=== PATIENT | male | born 1935 | race Caucasian/White ===

== ENCOUNTER → 2016-08-11 | Outpatient (CLI) | payer OTHER ==
[~2016-08-11] MED LIST: ASPCH81X PO; METO50TA16 PO; NIFE60TA57 PO; POTA10CA28 PO; PRED1SUS3 OPR; ROSU40TA PO; TRIATAB3 PO
[2016-08-11 13:45] LABS: ESTIMATED AVERAGE GLUCOSE 143 mg/dl; HA1C FLAG Normal (Normal)
[2016-08-11 13:49] LABS: BLOOD UREA NITROGEN 28 mg/dl (7-18); BUN/CREATININE RATIO 25.1 (10-20); CALCIUM 8.9 mg/dl (8.5-10.1); CARBON DIOXIDE 28 mmol/L (21-32); CHLORIDE 105 mmol/L (98-107); CHOLESTEROL 200 mg/dl (0-200); GLUCOSE 123 mg/dl (70-99); POTASSIUM 3.6 mmol/L (3.5-5.1); SODIUM 141 mmol/L (136-145); TRIGLYCERIDES 128 mg/dl (0-150); VERY LOW DENSITY LIPOPROT CALC 26 mg/dl
[2016-08-11 13:52] LABS: CHOLESTEROL/HDL RATIO 4.3; HDL CHOLESTEROL 46 mg/dl
== END | disposition home or self-care (01) ==
LOC: C.LABSPEC 12:43
PROVIDERS: ATTEND Internal Medicine
DX: I10 Essential (primary) hypertension (principal); E78.5 Hyperlipidemia, unspecified; R73.9 Hyperglycemia, unspecified

== ENCOUNTER → 2016-12-07 | Outpatient (CLI) | payer OTHER ==
[2016-12-07 13:57] LABS: ALT/SGPT 27 U/L (12-78); AST/SGOT 18 U/L (15-37); BLOOD UREA NITROGEN 17 mg/dl (7-18); BUN/CREATININE RATIO 14.4 (10-20); CALCIUM 9.2 mg/dl (8.5-10.1); CARBON DIOXIDE 29 mmol/L (21-32); CHLORIDE 105 mmol/L (98-107); CHOLESTEROL 220 mg/dl (0-200); GLUCOSE 128 mg/dl (70-99); POTASSIUM 3.3 mmol/L (3.5-5.1); SODIUM 141 mmol/L (136-145); TRIGLYCERIDES 203 mg/dl (0-150); VERY LOW DENSITY LIPOPROT CALC 41 mg/dl
[2016-12-07 13:59] LABS: ALB/GLOB RATIO 1.1 (0.9-2); ALKALINE PHOSPHATASE 63 U/L (45-117); CHOLESTEROL/HDL RATIO 4.8; HDL CHOLESTEROL 46 mg/dl
[2016-12-07 14:01] LABS: ESTIMATED AVERAGE GLUCOSE 146 mg/dl; HA1C FLAG Normal (Normal)
== END | disposition home or self-care (01) ==
LOC: C.LABSPEC 12:26
PROVIDERS: ATTEND Internal Medicine
DX: Z00.00 Encounter for general adult medical examination without abnormal findings (principal); I10 Essential (primary) hypertension; R73.9 Hyperglycemia, unspecified; E78.5 Hyperlipidemia, unspecified

== ENCOUNTER → 2016-12-22 | Outpatient (CLI) | payer OTHER | END | disposition home or self-care (01) | LOC: C.LABSPEC 12:18 | PROVIDERS: ATTEND Internal Medicine | DX: Z12.11 Encounter for screening for malignant neoplasm of colon (principal) ==

== ENCOUNTER → 2017-01-22 | Outpatient (CLI) | payer OTHER, BC ==
--- NOTE | 2017-01-22 18:13 | DIAGNOSTIC IMAGING REPORT ---
THORACIC SPINE 3 VIEWS ROUTINE CLINICAL HISTORY: ACUTE BACK PAIN COMPARISON STUDY: No previous studies for comparison. FINDINGS: There is a minimal spinal curvature. Bones are osteopenic. The paraspinal line is not displaced. No acute fractures are visualized. There are degenerative changes present, most pronounced within the lower cervical spine. Mild anterolisthesis of C7 on T1, and T1 on T2 is likely degenerative. No destructive lesions are visualized on conventional radiographic evaluation. IMPRESSION: 1. No acute fractures 2. No destructive lesions are visualized Electronically signed by: Jay Dangelo M.D. 01/22/2017 6:12 PM Dictated Date/Time: 01/22/2017 6:10 PM
--- NOTE | 2017-01-22 18:14 | DIAGNOSTIC IMAGING REPORT ---
L-SPINE MIN 4 VIEWS ROUTINE CLINICAL HISTORY: 81 years-old Male presenting with ACUTE BACK PAIN, no injury. TECHNIQUE: Frontal, bilateral oblique, lateral, and coned in lateral views of the lumbar spine were obtained. COMPARISON: Correlation made to CT of the abdomen and pelvis from 08/29/2010. FINDINGS: Suggestion of osteopenia. Normal lumbar lordosis. Mild anterior vertebral body height loss of L1 is unchanged since prior CT in 2010. Vertebral body heights and alignment otherwise maintained. Intervertebral disc height loss at L5-S1 where there is focal degenerative change. No convincing evidence of osseous neural foraminal narrowing. Surgical clips project over the periaortic region. Splenic arterial calcification noted. Nonobstructive bowel gas pattern. IMPRESSION: 1. Focal degenerative changes at L5-S1. 2. No radiographic evidence of acute osseous injury allowing for presumed osteopenia. Electronically signed by: Darryn Ely M.D. 01/22/2017 6:12 PM Dictated Date/Time: 01/22/2017 6:09 PM
== END | disposition home or self-care (01) ==
LOC: C.RAD 17:37
PROVIDERS: ATTEND Internal Medicine
DX: M54.9 Dorsalgia, unspecified (principal)

== ENCOUNTER → 2017-04-14 | Outpatient (CLI) | payer OTHER, BC ==
[2017-04-14 14:07] LABS: BLOOD UREA NITROGEN 24 mg/dl (7-18); BUN/CREATININE RATIO 21.1 (10-20); CALCIUM 9.1 mg/dl (8.5-10.1); CARBON DIOXIDE 27 mmol/L (21-32); CHLORIDE 107 mmol/L (98-107); CHOLESTEROL 188 mg/dl (0-200); CREATININE 1.14 mg/dl (0.60-1.40); GLUCOSE 124 mg/dl (70-99); POTASSIUM 3.7 mmol/L (3.5-5.1); SODIUM 141 mmol/L (136-145); TRIGLYCERIDES 126 mg/dl (0-150); VERY LOW DENSITY LIPOPROT CALC 25 mg/dl
[2017-04-14 14:10] LABS: CHOLESTEROL/HDL RATIO 3.6; HDL CHOLESTEROL 52 mg/dl
[2017-04-15 06:45] LABS: ESTIMATED AVERAGE GLUCOSE 134 mg/dl; HA1C FLAG Normal (Normal)
== END | disposition home or self-care (01) ==
LOC: C.LABSPEC 12:23
PROVIDERS: ATTEND Internal Medicine
DX: I10 Essential (primary) hypertension (principal); E78.5 Hyperlipidemia, unspecified; R73.9 Hyperglycemia, unspecified

== ENCOUNTER → 2017-08-12 | Outpatient (CLI) | payer OTHER, BC ==
[2017-08-12 14:44] LABS: BLOOD UREA NITROGEN 22 mg/dl (7-18); CARBON DIOXIDE 29 mmol/L (21-32); CREATININE 1.12 mg/dl (0.60-1.40); GLUCOSE 130 mg/dl (70-99); POTASSIUM 3.5 mmol/L (3.5-5.1); SODIUM 139 mmol/L (136-145)
[2017-08-12 14:47] LABS: CHOLESTEROL 233 mg/dl (0-200); LDL CHOLESTEROL (DIRECT) 152 mg/dl
== END | disposition home or self-care (01) ==
LOC: C.LABSPEC 12:50
PROVIDERS: ATTEND Internal Medicine
DX: I10 Essential (primary) hypertension (principal); E11.9 Type 2 diabetes mellitus without complications; E78.5 Hyperlipidemia, unspecified

== ENCOUNTER → 2018-01-03 | Outpatient (CLI) | payer OTHER, BC ==
[2018-01-03 14:01] LABS: HEMOGLOBIN A1C 6.9 % (4.5-5.6)
[2018-01-03 14:22] LABS: BLOOD UREA NITROGEN 19 mg/dl (7-18); CARBON DIOXIDE 26 mmol/L (21-32); CHOLESTEROL 187 mg/dl (0-200); CREATININE 1.08 mg/dl (0.60-1.40); GLUCOSE 119 mg/dl (70-99); LDL CHOLESTEROL (DIRECT) 113 mg/dl; POTASSIUM 3.7 mmol/L (3.5-5.1); SODIUM 140 mmol/L (136-145)
== END | disposition home or self-care (01) ==
LOC: C.LABSPEC 12:41
PROVIDERS: ATTEND Internal Medicine
DX: Z00.00 Encounter for general adult medical examination without abnormal findings (principal); I10 Essential (primary) hypertension; E11.9 Type 2 diabetes mellitus without complications; E78.5 Hyperlipidemia, unspecified

== ENCOUNTER 2020-03-24 10:22 | Observation (INO) ==
[2020-03-24] MEDS ORDERED: ONDANSETRON INJ 2 MG/ML 2 ML VIAL ONE (10:45)
[2020-03-24] MEDS ORDERED: FAMOTIDINE 20MG IV PUSH 20 MG/5 ML SYR IV STA (10:52)
[2020-03-24] MEDS ORDERED: diphenhydrAMINE 50 MG/ML VIAL IV STA (10:52)
[2020-03-24] MEDS ORDERED: SODIUM CHLORIDE 0.9% 1000ML 1,000 ML IV ONE (10:52)
[2020-03-24] MEDS ORDERED: PROCHLORPERAZINE 1 ML IV ONE (10:52)
--- NOTE | 2020-03-24 10:55 | Emergency Department Note ---
Impression & Plan Nausea & vomiting, Dizziness, Bradycardia ED Provider Note NAME: SABINE MOYA AGE: 84 SEX: M ARRIVES VIA: Walk-In INFORMANT: Patient, ED PROVIDER(S): Kamran Merrill MD CHIEF COMPLAINT: Dizziness, nausea, vomiting PLAN: Disposition: Admit MEDICAL DECISION MAKING: The patient is a pleasant 84-year-old gentleman with a pmhx of HTN, HLD, AAA s/p repair, bilateral popliteal a repair on Xarelto who presents emergency department accompanied by his daughter with dizziness, nausea and vomiting with attempts to eat that has persisted since Wednesday. He denies any abdominal pain, chest pain, shortness of breath, fevers, chills, cough, congestion, diarrhea. He reports having bowel movement Wednesday before and after his nausea and vomiting started. He denies any known COVID-19 exposures. The patient feels his dizziness and vomiting evolved around the same time. On arrival patient is uncomfortable no acute distress, afebrile with stable vital signs. EKG demonstrates sinus bradycardia without overt acute ischemia. Chest x-ray negative for acute cardiopulmonary process. WBC, H/H and platelets within normal limits. Chemistry without metabolic acidosis. Electrolytes and LFTs unremarkable. Troponin 0.017, within normal limits. Lipase is not elevated. UA without evidence of infection. CT done pelvis was negative for acute process. Incidental note is made of cystic lesion of the pancreas that has progressed since 2010 likely benign. On reevaluation the patient did feel improved after IV fluid hydration and antiemetics. However upon ambulatory trial the patient was significantly unsteady unable to keep his balance. Therefore given persistence of his symptoms with unclear etiology we did agree to proceed with evaluation for possible central etiology. CT of the head was negative for ischemia or ICH. There is no severe narrowing or occlusion of large vessels. Moderate carotid disease was noted. They were ultimately agreeable for admission for further evaluation given the persistence of his symptoms. Case was discussed with Dr. Blanco, [facility] [place], who will evaluate the patient for admission. Triage Nursing notes reviewed and agree them. Prior medical records reviewed Vital Signs: reviewed and remarkable for sinus bradycardia Differential diagnosis: Gastroenteritis, food borne illness, infections, appendicitis, diverticulitis, inflammatory bowel disease, obstruction, GI bleed, biliary pathology, volvulus, as well as other pathologies. ER treatment provided: See below. Diagnostics interpreted by me: ECG: Sinus bradycardia, 47 bpm, no ectopy, no overt ST elevation or depression, QTC 465, QRS 98. Cardiac Monitoring: An order for continuous cardiac monitoring was placed and demonstrated sinus bradycardia, 47 bpm, no ectopy. Laboratory studies: See below Imaging studies: XR chest 1V portable HISTORY: 84 years-old Male Chest Pain acute atypical chest pain COMPARISON: CTA chest and chest radiograph 06/15/2018 TECHNIQUE: Portable AP view of the chest FINDINGS: Cardiac silhouette is mildly enlarged. Calcified plaque of the thoracic aortic arch. No pneumothorax, pleural effusion, airspace consolidation or overt pulmonary edema. 1.7 cm calcified pleural plaque adjacent to left upper lobe is redemonstrated. Degenerative changes of the shoulders and spine. IMPRESSION: No acute process. -- ABDOMEN AND PELVIS CT WITH IV CONTRAST CT DOSE: 359.97 mGy.cm HISTORY: Acute generalized abdominal pain with nausea and vomiting n/v, abd pain TECHNIQUE: Multiaxial CT images of the abdomen and pelvis were performed following the IV administration of 95 cc of Optiray 320, A dose lowering technique was utilized adhering to the principles of ALARA. COMPARISON STUDY: CT abdomen and pelvis 08/29/2010 FINDINGS: Mild bibasilar atelectasis/scarring. Coronary artery, aortic and mitral annular calcifications. No pneumatosis or pneumoperitoneum. The spleen is unremarkable. Bilateral adrenal gland thickening is unchanged suggestive of hyperplasia. Cholelithiasis without CT evidence of acute cholecystitis. Mild prominence of the common bile duct without choledocholithiasis identified. Unremarkable liver. There is patency of the hepatic and portal veins. There is an ovoid cystic lesion measuring 1.9 x 1.4 cm within the pancreatic neck with marginal curvilinear calcification. In retrospect, this previously measured 11 x 10 mm in 2010. Unremarkable kidneys with bilateral renal vascular calcifications. No hydronephrosis. Mild prostamegaly with mild gallbladder distention. Extensive mixed plaque the abdominal aorta and branch vessels. Fusiform aneurysm dilation of the infrarenal abdominal aorta, 4.0 x 3.7 cm without evidence of aneurysm rupture. Mild fusiform dilation of the bilateral common iliac arteries, 2.0 cm on the right and 1.5 cm on the left. Postoperative changes with surgical clips of the bilateral inguinal chains. Small fat filled inguinal hernias. No adenopathy. Mild distal esophageal wall thickening with periesophageal varices. No bowel obstruction or bowel wall thickening. Colonic diverticulosis without acute diverticulitis. Moderate fecal retention. Normal appendix. Unremarkable soft tissues. Demineralized appearance of the bones. Degenerative changes of the spine, pelvis and hips. No suspicious bone lesion. IMPRESSION: 1. No bowel obstruction or bowel wall thickening. Normal appendix. 2. Moderate fecal retention. 3. Cystic lesion with minimal peripheral calcification involving the pancreatic neck has mildly increased in size from 2011, now measuring 1.9 cm. Benign etiology is favored. 4. Cholelithiasis without CT evidence of acute cholecystitis. 5. Extensive mixed plaque of the abdominal aorta with fusiform aneurysmal dilation of the infrarenal segment, 4.0 x 3.7 cm. Mild dilation of the bilateral common iliac arteries. 6. Additional findings as above. -- CT head/brain wo con CLINICAL HISTORY: 84 years-old Male with dizziness, vomiting. Acute dizziness with vomiting TECHNIQUE: Multiple axial CT images of the head were obtained without contrast. A dose lowering technique was utilized adhering to the principles of ALARA. COMPARISON: CTA head and neck of same day FINDINGS: No acute intracranial hemorrhage, midline shift, intracranial mass, hydrocephalus, territorial ischemia or abnormal extra-axial collection. Age- related involutional changes. Patchy white matter hypodensities suggest chronic microvascular ischemic disease. Cerebral vascular and senescent basal ganglia calcifications are noted. The calvarium is intact. The paranasal sinuses, mastoid air cells, and middle ear cavities are clear. IMPRESSION: No acute intracranial abnormality. - CT angio neck with con, CT angio head w con CLINICAL HISTORY: 84 years-old Male with dizziness, vomiting. Acute dizziness with vomiting acute strokelike symptoms COMPARISON STUDY: Head CT of same day TECHNIQUE: Following the IV administration of 1 20 mL of Optiray 320, CT angiogram of the head and neck was performed from the aortic arch to the skull apex. Images are reviewed in the axial, sagittal, and coronal planes. 3-D MIPS images are created and assessed. IV contrast was administered without complication. All measurements were calculated based on NASCET criteria. A dose lowering technique was utilized adhering to the principles of ALARA. CT DOSE: 1085.94 mGy.cm FINDINGS: Imaged opacified pulmonary artery is unremarkable. Moderate to severe mixed plaque of the thoracic aortic arch and proximal great vessels. The innominate and imaged subclavian arteries appear patent. Patent innominate and common carotid arteries. There is moderate to severe mixed plaque of the carotid bulbs and proximal internal carotid arteries. This results in 60% stenosis at the origin of the right internal carotid artery and less than 50% stenosis on the left. The bilateral internal carotid arteries are otherwise widely patent. Calci fied plaque of the cavernous and supraclinoid segments without high-grade stenosis. The middle and anterior cerebral arteries are patent. Codominant vertebral arteries. Calcified plaque the origin of the right vertebral artery without high-grade stenosis. The left vertebral artery originates from the aortic arch. Areas of moderate luminal narrowing noted involving the V4 segment right vertebral artery secondary to calcified plaque. The left vertebral artery is widely patent. The basilar and posterior cerebral arteries are patent. Cerebral venous sinuses are patent. There is no abnormal cranial enhancement. Lung apices are clear without pneumothorax. Subcentimeter hypodense right thyroid nodule. No adenopathy. Mild mucoperiosteal thickening of the maxillary sinuses. Multilevel degenerative changes of the cervical spine. Developmental incomplete bony fusion involves the posterior arch of C1. IMPRESSION: 1. 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 2. Moderate luminal narrowing within the V4 segment right vertebral artery secondary to calcified plaque. 3. No aneurysm, dissection, high-grade stenosis or proximal branch occlusion. Consultation(s): Case was discussed with Dr. Blanco, [facility] hospitalist, who will evaluate the patient for admission. HPI: The patient is a pleasant 84-year-old gentleman with a pmhx of HTN, HLD, AAA s/p repair, bilateral popliteal a repair on [facility] who presents emergency department accompanied by his daughter with dizziness, nausea and vomiting with attempts to eat that has persisted since Wednesday. He denies any abdominal pain, chest pain, shortness of breath, fevers, chills, cough, congestion, diarrhea. He reports having bowel movement Wednesday before and after his nausea and vomiting started. He denies any known COVID-19 exposures. The patient feels his dizziness and vomiting evolved around the same time. ROS: See above HPI for pertinent positives & negatives. A total of 10 systems reviewed and were otherwise negative. PAST MEDICAL HISTORY:See Below PAST SURGICAL HISTORY:See Below FAMILY HISTORY:See Below SOCIAL HISTORY:See Below HOME MEDICATIONS:See Below ALLERGIES:See Below VITALS:See Below PHYSICAL EXAMINATION: GENERAL: Awake, alert, uncomfortable-appearing, in no distress HENT: Normocephalic, atraumatic. Oropharynx with dry mucous membranes and otherwise unremarkable. EYES: Normal conjunctiva. Sclera non-icteric. EOMI. No nystamgus. PEARRL. NECK: Supple. No nuchal rigidity. FROM. No JVD. RESPIRATORY: Clear to auscultation. CARDIAC: Regular rate, normal rhythm. Extremities warm and well perfused. Pulses equal. ABDOMEN: Soft, non-distended. No tenderness to palpation. No rebound or guarding. No masses. RECTAL: Deferred. MUSCULOSKELETAL: Chest examination reveals no tenderness. The back is symmetrical on inspection without obvious abnormality. There is no CVA tend erness to palpation. No joint edema. LOWER EXTREMITIES: Calves are equal size bilaterally and non-tender. No edema. No discoloration. NEURO: Normal sensorium. No sensory or motor deficits noted. Intact [id number]. 5/5 strength and SILT x 4 extremities. SKIN: No rash or jaundice noted. 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 Surgical History History of AAA (abdominal aortic aneurysm) repair History of vascular surgery b/l popliteal artery aneurysm repair Hx of colonoscopy Family History Father Myocardial infarction No early [place] Brother Family history of diabetes mellitus Sister Family history of diabetes mellitus Social History Smoking Status: Never smoker Second Hand Exposure: No; Hx Alcohol Use: No Hx Substance Use: No Preferred Language: Belarusian Communication Ability: Effective Beliefs That Will Affect Care: None marital status: Current Living Situation: Spouse Current Living Situation Comment: lives in house with 13 steps Feels Safe at Home: Yes Assistive Devices: Glasses and Walker Allergies Allergies Allergy/AdvReac Type Severity Reaction Status Date / Time No Known Allergies Allergy Verified 03/24/20 13:22 Home Meds Home Medications Medication Instructions Recorded Confirmed aspirin [Aspirin Low Dose] 81 mg PO QAM 06/15/18 03/24/20 metoprolol tartrate 50 mg PO QAM 06/15/18 03/24/20 nifedipine [Procardia XL] 60 mg PO QAM 06/15/18 03/24/20 rosuvastatin 40 mg PO HS 06/15/18 03/24/20 triamterene-hydrochlorothiazid 1 cap PO QAM 06/15/18 03/24/20 Xarelto 20 mg PO HS 03/02/19 03/24/20 metformin 500 mg PO BID 03/02/19 03/24/20 potassium chloride 30 meq PO BID 03/02/19 03/24/20 Results & Data (ED) Vital Signs Vital Signs - 24 hr 03/24/20 10:29 03/24/20 11:19 03/24/20 11:30 Temperature 36.5 C Temperature Source Oral Pulse Rate 61 50 L 47 L Pulse Rate from SpO2 Sensor Respiratory Rate 20 12 Respiratory Effort / Characteristics Non-Labored Spontaneous Respiratory Depth Normal Blood Pressure 168/92 H 159/83 H Blood Pressure Mean 114 98 Blood Pressure Position Sitting Pulse Oximetry 92 96 Oxygen Delivery Method Room Air Room Air Sepsis Recent Fever Within 48 Hours No Sepsis New/Unexplained Change in Mental Status No Sepsis Action Taken by Nursing No Action Required 03/24/20 12:00 03/24/20 12:30 03/24/20 13:00 Temperature Temperature Source Pulse Rate 46 L 50 L 51 L Pulse Rate from SpO2 Sensor Respiratory Rate 15 15 15 Respiratory Effort / Characteristics Respiratory Depth Blood Pressure 185/82 H 185/89 H 172/96 H Blood Pressure Mean 105 106 109 Blood Pressure Position Pulse Oximetry Oxygen Delivery Method Sepsis Recent Fever Within 48 Hours Sepsis New/Unexplained Change in Mental Status Sepsis Action Taken by Nursing 03/24/20 13:30 03/24/20 14:00 03/24/20 14:30 Temperature Temperature Source Pulse Rate 54 L 50 L 53 L Pulse Rate from SpO2 Sensor Respiratory Rate 14 16 16 Respiratory Effort / Characteristics Respiratory Depth Blood Pressure 170/96 H 147/97 H 167/91 H Blood Pressure Mean 120 108 100 Blood Pressure Position Pulse Oximetry Oxygen Delivery Method Sepsis Recent Fever Within 48 Hours Sepsis New/Unexplained Change in Mental Status Sepsis Action Taken by Nursing 03/24/20 15:00 03/24/20 15:39 03/24/20 16:00 Temperature Temperature Source Pulse Rate 46 L 70 56 L Pulse Rate from SpO2 Sensor 56 L Respiratory Rate 14 16 16 Respiratory Effort / Characteristics Respiratory Depth Blood Pressure 180/90 H Blood Pressure Mean 107 Blood Pressure Position Pulse Oximetry 95 Oxygen Delivery Method Sepsis Recent Fever Within 48 Hours Sepsis New/Unexplained Change in Mental Status Sepsis Action Taken by Nursing 03/24/20 16:01 03/24/20 16:30 03/24/20 17:00 Temperature Temperature Source Pulse Rate 50 L 46 L 48 L Pulse Rate from SpO2 Sensor 50 L 46 L 48 L Respiratory Rate 14 15 14 Respiratory Effort / Characteristics Respiratory Depth Blood Pressure 175/95 H 183/88 H 183/89 H Blood Pressure Mean 114 102 101 Blood Pressure Position Pulse Oximetry 95 94 96 Oxygen Delivery Method Sepsis Recent Fever Within 48 Hours Sepsis New/Unexplained Change in Mental Status Sepsis Action Taken by Nursing 03/24/20 17:30 Temperature Temperature Source Pulse Rate 51 L Pulse Rate from SpO2 Sensor 50 L Respiratory Rate 16 Respiratory Effort / Characteristics Respiratory Depth Blood Pressure 200/101 H Blood Pressure Mean 119 Blood Pressure Position Pulse Oximetry 94 Oxygen Delivery Method Sepsis Recent Fever Within 48 Hours Sepsis New/Unexplained Change in Mental Status Sepsis Action Taken by Nursing Laboratory Data Attestation: I reviewed the patient's lab results. Result diagrams: 03/24/20 10:42 03/24/20 10:42 Lab Results 03/24/20 03/24/20 03/24/20 Range/Units 10:42 10:42 10:42 WBC 10.15 (4.8-10.8) K/uL RBC 5.60 (4.7-6.1) M/uL Hgb 17.2 (14.0-18.0) g/dL Hct 50.2 (42-52) % MCV 89.6 (80-100) fL MCH 30.7 (25-34) pg MCHC 34.3 (32-36) g/dL RDW Std Deviation 46.6 H (36.4-46.3) fL RDW Coeff of Michael 14.4 (11.5-14.5) % Plt Count 197 (130-400) K/uL MPV 10.6 H (7.4-10.4) fL Immature Gran % (Auto) 0.2 % Neut % (Auto) 66.1 % Lymph % (Auto) 26.6 % Moore % (Auto) 6.4 % Eos % (Auto) 0.5 % Baso % (Auto) 0.2 % Neut # (Auto) 6.71 H (1.4-6.5) K/uL Lymph # (Auto) 2.70 (1.2-3.4) K/uL Moore # (Auto) 0.65 H (0.11-0.59) K/uL Eos # (Auto) 0.05 (0-0.5) K/uL Baso # (Auto) 0.02 (0-0.2) K/uL Immature Gran # (Auto) 0.02 (0.00-0.02) K/uL PT Cancelled INR Cancelled APTT Cancelled PTT Ratio Cancelled Sodium 139 (136-145) mmol/L Potassium 3.5 (3.5-5.1) mmol/L Chloride 106 (98-107) mmol/L Carbon Dioxide 27 (21-32) mmol/L Anion Gap 6.0 (3-11) BUN 29 H (7-18) mg/dl Creatinine 1.09 (0.6-1.4) mg/dl Est Cr Clr Drug Dosing Not Reportable Est GFR ( Amer) 70.9 Est GFR (Non-Af Amer) 61.1 BUN/Creatinine Ratio 26.5 H (10-20) Glucose 137 H (70-99) mg/dl Calcium 9.5 (8.5-10.1) mg/dl Phosphorus 3.2 (2.5-4.9) mg/dl Magnesium 2.2 (1.8-2.4) mg/dl Total Bilirubin 1.2 H (0.2-1) mg/dl Direct Bilirubin 0.2 (0-0.2) mg/dl AST 16 (15-37) U/L ALT 28 (12-78) U/L Alkaline Phosphatase 71 (45-117) U/L Troponin I 0.017 (0-0.045) ng/ml Total Protein 7.7 (6.4-8.2) gm/dl Albumin 3.8 (3.4-5.0) gm/dl Globulin 3.9 (2.5-4.0) gm/dl Albumin/Globulin Ratio 1.0 (0.9-2) Lipase 105 (73-393) U/L TSH 4.090 (0.300-4.500) uIu/ml Urine Color Urine Appearance (Clear) Urine pH (4.5-7.5) Ur Specific [place] (1.000-1.030) Urine Protein (Negative) Urine Glucose (UA) (Negative) Urine Ketones (Negative) Urine Blood (Negative) Urine Nitrite (Negative) Urine Bilirubin (Negative) Urine Urobilinogen (Negative) Ur Leukocyte Esterase (Negative) Urine WBC (Auto) (0-5) /hpf Urine RBC (Auto) (0-4) /hpf U Hyaline Cast (Auto) (0-5) /lpf U Epithel Cells (Auto) (0-5) /lpf Urine Bacteria (Auto) (Negative) 03/24/20 03/24/20 Range/Units 11:55 15:00 WBC (4.8-10.8) K/uL RBC (4.7-6.1) M/uL Hgb (14.0-18.0) g/dL Hct (42-52) % MCV (80-100) fL MCH (25-34) pg MCHC (32-36) g/dL RDW Std Deviation (36.4-46.3) fL RDW Coeff of Michael (11.5-14.5) % Plt Count (130-400) K/uL MPV (7.4-10.4) fL Immature Gran % (Auto) % Neut % (Auto) % Lymph % (Auto) % Moore % (Auto) % Eos % (Auto) % Baso % (Auto) % Neut # (Auto) (1.4-6.5) K/uL Lymph # (Auto) (1.2-3.4) K/uL Moore # (Auto) (0.11-0.59) K/uL Eos # (Auto) (0-0.5) K/uL Baso # (Auto) (0-0.2) K/uL Immature Gran # (Auto) (0.00-0.02) K/uL PT 11.9 INR 1.1 APTT 25.4 PTT Ratio 0.9 Sodium (136-145) mmol/L Potassium (3.5-5.1) mmol/L Chloride (98-107) mmol/L Carbon Dioxide (21-32) mmol/L Anion Gap (3-11) BUN (7-18) mg/dl Creatinine (0.6-1.4) mg/dl Est Cr Clr Drug Dosing Est GFR ( Amer) Est GFR (Non-Af Amer) BUN/Creatinine Ratio (10-20) Glucose (70-99) mg/dl Calcium (8.5-10.1) mg/dl Phosphorus (2.5-4.9) mg/dl Magnesium (1.8-2.4) mg/dl Total Bilirubin (0.2-1) mg/dl Direct Bilirubin (0-0.2) mg/dl AST (15-37) U/L ALT (12-78) U/L Alkaline Phosphatase (45-117) U/L Troponin I (0-0.045) ng/ml Total Protein (6.4-8.2) gm/dl Albumin (3.4-5.0) gm/dl Globulin (2.5-4.0) gm/dl Albumin/Globulin Ratio (0.9-2) Lipase (73-393) U/L TSH (0.300-4.500) uIu/ml Urine Color Yellow Urine Appearance Clear (Clear) Urine pH 5.5 (4.5-7.5) Ur Specific [place] > 1.045 H (1.000-1.030) Urine Protein Trace H (Negative) Urine Glucose (UA) Negative (Negative) Urine Ketones Negative (Negative) Urine Blood Negative (Negative) Urine Nitrite Negative (Negative) Urine Bilirubin Negative (Negative) Urine Urobilinogen Negative (Negative) Ur Leukocyte Esterase Negative (Negative) Urine WBC (Auto) 1-5 (0-5) /hpf Urine RBC (Auto) 0-4 (0-4) /hpf U Hyaline Cast (Auto) 1-5 (0-5) /lpf U Epithel Cells (Auto) >30 H (0-5) /lpf Urine Bacteria (Auto) Negative (Negative) Administered Medications Insulin Aspart (Insulin Aspart 100 Units/Ml 3 Ml Pen) 0 units SC ACHS ARTHUR Stop: 04/23/20 20:59 Last Admin: 03/24/20 21:56 Dose: Not Given Documented by: [id number] Cosigned by: [id number] Rivaroxaban (Rivaroxaban 20 Mg Tab) 20 mg PO HS ARTHUR Stop: 04/23/20 20:59 Last Admin: 03/24/20 21:26 Dose: 20 mg Documented by: [id number] Rosuvastatin Calcium (Rosuvastatin Calcium 20 Mg Tab) 40 mg PO HS ARTUHR Stop: 04/23/20 20:59 Last Admin: 03/24/20 21:25 Dose: 40 mg Documented by: [id number] Discontinued Medications Diphenhydramine HCl (Diphenhydramine 50 Mg/Ml Vial) 12.5 mg IV NOW STA Stop: 03/24/20 10:53 Last Admin: 03/24/20 11:19 Dose: 12.5 mg Documented by: [id number] Sodium Chloride (Nss 1000ml) 1,000 mls @ 999 mls/hr IV .Q1H1M ONE Stop: 03/24/20 11:52 Last Infusion: 03/24/20 12:23 Dose: 0 mls/hr Documented by: [id number] Admin: 03/24/20 11:19 Dose: 999 mls/hr Documented by: [id number] Famotidine (Pepcid 20mg Iv Push) 20 mg in 5 mls @ 2.5 mls/min IV NOW STA Stop: 03/24/20 10:53 Last Admin: 03/24/20 11:18 Dose: 2.5 mls/min Documented by: [id number] Prochlorperazine (Compazine) 1 mls @ 1 mls/min IV ONE ONE Stop: 03/24/20 10:53 Last Admin: 03/24/20 11:19 Dose: 1 mls/min Documented by: [id number] Sodium Chloride (Nss) 500 mls @ 999 mls/hr IV .Q31M ONE Stop: 03/24/20 15:08 Last Infusion: 03/24/20 17:15 Dose: 0 mls/hr Documented by: [id number] Admin: 03/24/20 16:15 Dose: 999 mls/hr Documented by: [id number] Ioversol (Ioversol 100ml) 94 ml IV ONCE ONE Stop: 03/24/20 11:51 Last Admin: 03/24/20 11:50 Dose: 94 ml Documented by: [id number] Ioversol (Optiray 320 125ml) 120 ml IV ONCE ONE Stop: 03/24/20 15:36 Last Admin: 03/24/20 15:36 Dose: 120 ml Documented by: [id number] Ondansetron HCl (Ondansetron Inj 2 Mg/Ml 2 Ml Vial) Confirm Administered Dose 4 mg .ROUTE .STK-MED ONE Stop: 03/24/20 10:46 Last Admin: 03/24/20 10:49 Dose: 4 mg Documented by: [id number] Discharge Plan Visit Data Chief Complaint: Vomiting Stated Complaint: VOMITING ED Provider: Kamran Merrill Discharge Problem: Nausea & vomiting, Dizziness, Bradycardia Patient Disposition: Admitted As Inpatient Discharge Instructions Interventions: ED Discharge Assessment Last Done: 03/24/20 19:48 Discharge Problem: Nausea & vomiting Qualifiers: Vomiting type: unspecified Vomiting Intractability: unspecified Qualified Code(s): R11.2 - Nausea with vomiting, unspecified
[2020-03-24 11:03] LABS: Basophils # (auto) 0.02 K/uL (0-0.2); Basophils % (auto) 0.2 %; Eosinophils # (auto) 0.05 K/uL (0-0.5); Eosinophils % (auto) 0.5 %; Hematocrit (blood only) 50.2 % (42-52); Hemoglobin 17.2 g/dL (14.0-18.0); Immature Granulocytes # (auto) 0.02 K/uL (0.00-0.02); Immature Granulocytes % (auto) 0.2 %; Lymphocytes % (auto) 26.6 %; Mean Corpuscular Hemoglobin 30.7 pg (25-34); Mean Corpuscular Hgb Conc 34.3 g/dL (32-36); Mean Corpuscular Volume 89.6 fL (80-100); Mean Platelet Volume 10.6 fL (7.4-10.4); Monocytes # (auto) 0.65 K/uL (0.11-0.59); Monocytes % (auto) 6.4 %; Neutrophils # (auto) 6.71 K/uL (1.4-6.5); Neutrophils % (auto) 66.1 %; Platelet Count 197 K/uL (130-400); RDW Coefficient of Variation 14.4 % (11.5-14.5); RDW Standard Deviation 46.6 fL (36.4-46.3); White Blood Count 10.15 K/uL (4.8-10.8)
[2020-03-24 11:11] LABS: Alanine Aminotransferase 28 U/L (12-78); Albumin Level 3.8 gm/dl (3.4-5.0); Aspartate Aminotransferase 16 U/L (15-37); BUN Creatinine Ratio 26.5 (10-20); Bilirubin Direct 0.2 mg/dl (0-0.2); Blood Urea Nitrogen 29 mg/dl (7-18); Calcium 9.5 mg/dl (8.5-10.1); Carbon Dioxide 27 mmol/L (21-32); Est GFR (African American) 70.9; Est GFR (Non-African American) 61.1; Glucose 137 mg/dl (70-99); Lipase 105 U/L (73-393); Magnesium 2.2 mg/dl (1.8-2.4); Potassium 3.5 mmol/L (3.5-5.1)
[2020-03-24 11:12] LABS: Phosphorus 3.2 mg/dl (2.5-4.9)
[2020-03-24 11:13] LABS: Chloride 106 mmol/L (98-107); Sodium 139 mmol/L (136-145)
[2020-03-24 11:20] LABS: Alkaline Phosphatase 71 U/L (45-117); Bilirubin,Total 1.2 mg/dl (0.2-1); Globulin 3.9 gm/dl (2.5-4.0); Total Protein 7.7 gm/dl (6.4-8.2); Troponin I 0.017 ng/ml (0-0.045)
--- NOTE | 2020-03-24 11:21 | XRay Report ---
XR chest 1V portable HISTORY: 84 years-old Male Chest Pain acute atypical chest pain COMPARISON: CTA chest and chest radiograph 06/15/2018 TECHNIQUE: Portable AP view of the chest FINDINGS: Cardiac silhouette is mildly enlarged. Calcified plaque of the thoracic aortic arch. No pneumothorax, pleural effusion, airspace consolidation or overt pulmonary edema. 1.7 cm calcified pleural plaque a djacent to left upper lobe is redemonstrated. Degenerative changes of the shoulders and spine. IMPRESSION: No acute process. ACT 112: Negative or not required by law. The above report was generated using voice recognition software. It may contain grammatical, syntax o r spelling errors. Electronically signed by: Pedro Noland M.D. 03/24/2020 11:19 AM
[2020-03-24] MEDS ORDERED: IOVERSOL 100ml IV ONE (11:50)
[2020-03-24 12:13] LABS: INR 1.1 (0.9-1.1); Partial Thromboplastin Ratio 0.9; Partial Thromboplastin Time 25.4 Seconds (21.0-31.0); Prothrombin Time 11.9 Seconds (9.0-12.0)
--- NOTE | 2020-03-24 12:26 | CT Scan Report ---
ABDOMEN AND PELVIS CT WITH IV CONTRAST CT DOSE: 359.97 mGy.cm HISTORY: Acute generalized abdominal pain with nausea and vomiting n/v, abd pain TECHNIQUE: Multiaxial CT images of the abdomen and pelvis were performed following the IV administrat ion of 95 cc of Optiray 320, A dose lowering technique was utilized adhering to the principles of AL SAAD. COMPARISON STUDY: CT abdomen and pelvis 08/29/2010 FINDINGS: Mild bibasilar atelectasis/scarring. Coronary artery, aortic and mitral annular calcifications. No pn eumatosis or pneumoperitoneum. The spleen is unremarkable. Bilateral adrenal gland thickening is unch anged suggestive of hyperplasia. Cholelithiasis without CT evidence of acute cholecystitis. Mild prom inence of the common bile duct without choledocholithiasis identified. Unremarkable liver. There is p atency of the hepatic and portal veins. There is an ovoid cystic lesion measuring 1.9 x 1.4 cm within the pancreatic neck with marginal curvilinear calcification. In retrospect, this previously measured 11 x 10 mm in 2011. Unremarkable kidneys with bilateral renal vascular calcifications. No hydronephrosis. Mild prostamega ly with mild gallbladder distention. Extensive mixed plaque the abdominal aorta and branch vessels. F usiform aneurysm dilation of the infrarenal abdominal aorta, 4.0 x 3.7 cm without evidence of aneurys m rupture. Mild fusiform dilation of the bilateral common iliac arteries, 2.0 cm on the right and 1.5 cm on the left. Postoperative changes with surgical clips of the bilateral inguinal chains. Small fa t filled inguinal hernias. No adenopathy. Mild distal esophageal wall thickening with periesophageal varices. No bowel obstruction or bowel wal l thickening. Colonic diverticulosis without acute diverticulitis. Moderate fecal retention. Normal a ppendix. Unremarkable soft tissues. Demineralized appearance of the bones. Degenerative changes of th e spine, pelvis and hips. No suspicious bone lesion. IMPRESSION: 1. No bowel obstruction or bowel wall thickening. Normal appendix. 2. Moderate fecal retention. 3. Cystic lesion with minimal peripheral calcification involving the pancreatic neck has mildly incre ased in size from 2011, now measuring 1.9 cm. Benign etiology is favored. 4. Cholelithiasis without CT evidence of acute cholecystitis. 5. Extensive mixed plaque of the abdominal aorta with fusiform aneurysmal dilation of the infrarenal segment, 4.0 x 3.7 cm. Mild dilation of the bilateral common iliac arteries. 6. Additional findings as above. ACT 112: Negative or not required by law. The above report was generated using voice recognition software. It may contain grammatical, syntax o r spelling errors. Electronically signed by: Pedro Noland M.D. 03/24/2020 12:25 PM
[2020-03-24] MEDS ORDERED: SODIUM CHLORIDE 0.9% 500 ML IV ONE (14:38)
[2020-03-24] MEDS ORDERED: OPTIRAY 320 125ml IV ONE (15:35)
[2020-03-24 15:43] LABS: Appearance Urine Clear (Clear); Bacteria Urine Automated Negative (Negative); Bilirubin Urine Negative (Negative); Blood Urine Negative (Negative); Color Urine Yellow; Epithelial Cell Urine Auto >30 /lpf (0-5); Glucose Urine UA Negative (Negative); Ketones Urine Negative (Negative); Leukocyte Esterase Urine Negative (Negative); Nitrite Urine Negative (Negative); Protein Urine Trace (Negative); RBC Urine Automated 0-4 /hpf (0-4); Specific Gravity Urine > 1.045 (1.000-1.030); Urobilinogen Urine Negative (Negative); pH Urine 5.5 (4.5-7.5)
--- NOTE | 2020-03-24 15:48 | CT Scan Report ---
CT head/brain wo con CLINICAL HISTORY: 84 years-old Male with dizziness, vomiting. Acute dizziness with vomiting TECHNIQUE: Multiple axial CT images of the head were obtained without contrast. A dose lowering tech nique was utilized adhering to the principles of ALARA. COMPARISON: CTA head and neck of same day FINDINGS: No acute intracranial hemorrhage, midline shift, intracranial mass, hydrocephalus, territorial ischem ia or abnormal extra-axial collection. Age-related involutional changes. Patchy white matter hypodens ities suggest chronic microvascular ischemic disease. Cerebral vascular and senescent basal ganglia c alcifications are noted. The calvarium is intact. The paranasal sinuses, mastoid air cells, and middle ear cavities are clear . IMPRESSION: No acute intracranial abnormality. ACT 112: Negative or not required by law. The above report was generated using voice recognition software. It may contain grammatical, syntax o r spelling errors. Electronically signed by: Pedro Noland M.D. 03/24/2020 3:46 PM
--- NOTE | 2020-03-24 16:11 | CT Scan Report ---
CT angio neck with con, CT angio head w con CLINICAL HISTORY: 84 years-old Male with dizziness, vomiting. Acute dizziness with vomiting acute strokelike symptoms COMPARISON STUDY: Head CT of same day TECHNIQUE: Following the IV administration of 1 20 mL of Optiray 320, CT angiogram of the head and ne ck was performed from the aortic arch to the skull apex. Images are reviewed in the axial, sagittal, and coronal planes. 3-D MIPS images are created and assessed. IV contrast was administered without co mplication. All measurements were calculated based on NASCET criteria. A dose lowering technique was utilized adhering to the principles of ALARA. CT DOSE: 1085.94 mGy.cm FINDINGS: Imaged opacified pulmonary artery is unremarkable. Moderate to severe mixed plaque of the thoracic ao rtic arch and proximal great vessels. The innominate and imaged subclavian arteries appear patent. Pa tent innominate and common carotid arteries. There is moderate to severe mixed plaque of the carotid bulbs and proximal internal carotid arteries. This results in 60% stenosis at the origin of the right internal carotid artery and less than 50% stenosis on the left. The bilateral internal carotid arter ies are otherwise widely patent. Calcified plaque of the cavernous and supraclinoid segments without high-grade stenosis. The middle and anterior cerebral arteries are patent. Codominant vertebral arteries. Calcified plaque the origin of the right vertebral artery without high -grade stenosis. The left vertebral artery originates from the aortic arch. Areas of moderate luminal narrowing noted involving the V4 segment right vertebral artery secondary to calcified plaque. The l eft vertebral artery is widely patent. The basilar and posterior cerebral arteries are patent. Cerebr al venous sinuses are patent. There is no abnormal cranial enhancement. Lung apices are clear without pneumothorax. Subcentimeter hypodense right thyroid nodule. No adenopat hy. Mild mucoperiosteal thickening of the maxillary sinuses. Multilevel degenerative changes of the c ervical spine. Developmental incomplete bony fusion involves the posterior arch of C1. IMPRESSION: 1. 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 2. Moderate luminal narrowing within the V4 segment right vertebral artery secondary to calcified jorge a que. 3. No aneurysm, dissection, high-grade stenosis or proximal branch occlusion. ACT 112: Negative or not required by law. The above report was generated using voice recognition software. It may contain grammatical, syntax o r spelling errors. Electronically signed by: Pedro Noland M.D. 03/24/2020 4:09 PM
--- NOTE | 2020-03-24 18:05 | History & Physical Report ---
Date of Service March 24, 2020 Assessment & Plan (1) Nausea & vomiting: Acute onset on Wednesday. Has had >12 episodes with the most recent just bilious. No diarrhea. No abdominal pain. - Ddx includes viral gastroenteritis, cerebellar stroke, inner ear pathology, or maybe even hypoperfusion if he is becoming bradycardic and having symptoms from that. - Testing for Covid, other URI viruses, MRI brain, PT/OT with Abby-Hallpike - Treat symptomatically with Zofran to start (2) Dizziness: Mixed picture with his nausea and vomiting. It is not entirely clear if it causes the nausea and vomiting or if he has some orthostasis from dehydration or if it is all together. - Plan as above (3) Bradycardia: Possibly an aspect of his symptoms. - Hold beta-abigail - Monitor on tele (4) HTN (hypertension): BP elevated in the ED at 180/90. - Continue home nifedipine and triamterene-HCTZ - Hold home metoprolol - Hydralazine PRN (5) History of abdominal aortic aneurysm (AAA): Repaired ~2011. Noted on CT a/p. - Monitor (6) Pre-diabetes: A1c was 6.4% in 01/2020. - Hold metformin - Diabetic diet - Sliding scale insulin (7) PVD (peripheral vascular disease): S/p bilateral popliteal repairs at [place]. - Continue ASA & Xarelto History of Present Illness Primary Care Provider: Wili Treviño MD 84yo M w/ hx of DM and multiple aneurysms who presents with acute onset nausea, emesis, and dizziness & ataxia. He reports that he was in his normal state of health on Wednesday morning when he woke up. Around noon on Wednesday, he was walking to his store outside, and he felt the urge to throw up. He threw up which was just food he had previously eaten. However, he then had multiple more episodes that afternoon. Around the same time in the afternoon, he noted worsening dizziness. He reports this mostly as ataxia and worsening when he tries to walk. It doesn't really sound like a "room spinning" event so much as just general lightheadedness. He denies any dizziness with head motions. Allergies Allergy/AdvReac Type Severity Reaction Status Date / Time No Known Allergies Allergy Verified 03/24/20 13:22 Home Medications Home Medications Medication Instructions Recorded Confirmed Type aspirin [Aspirin Low Dose] 81 mg PO QAM 06/15/18 03/24/20 History metoprolol tartrate 50 mg PO QAM 06/15/18 03/24/20 History nifedipine [Procardia XL] 60 mg PO QAM 06/15/18 03/24/20 History rosuvastatin 40 mg PO HS 06/15/18 03/24/20 History triamterene-hydrochlorothiazid 1 cap PO QAM 06/15/18 03/24/20 History Xarelto 20 mg PO HS 03/02/19 03/24/20 History metformin 500 mg PO BID 03/02/19 03/24/20 History potassium chloride 30 meq PO BID 03/02/19 03/24/20 History Past Med/Surg History Medical History (Updated 03/24/20 @ 18:04 by Miki Blanco MD) Hiatal hernia moderate per 06/2018 CTA High cholesterol History of abdominal aortic aneurysm (AAA) s/p repair (2011) HTN (hypertension) Lesion of pancreas Nasal polyp Pre-diabetes on metformin PVD (peripheral vascular disease) 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 Surgical History History of AAA (abdominal aortic aneurysm) repair History of vascular surgery b/l popliteal artery aneurysm repair Hx of colonoscopy Family History Father Myocardial infarction No early [place] Brother Family history of diabetes mellitus Sister Family history of diabetes mellitus Social History Smoking Status: Never smoker Second Hand Exposure: No; Hx Alcohol Use: Yes (occasionally ~1x/month) Alcohol type: beer and hard liquor Hx Substance Use: No Preferred Language: Bengali Communication Ability: Effective Beliefs That Will Affect Care: None marital status: Current Living Situation: Spouse Feels Safe at Home: Yes Assistive Devices: Glasses Review of Systems Review of Systems: All systems reviewed & are unremarkable except as noted in HPI & below Physical Exam Constitutional: WD/WN, vitals as above Eyes: EOM intact bilaterally; no conjunctival abnormality ENMT: external ear and nose normal, oropharynx normal Neck: trachea midline, no thyromegaly normal visual inspection Respiratory: normal respiratory effort, lungs clear to auscultation no respiratory distress Cardiovascular: RRR, no murmur, no edema Gastrointestinal (Abdomen): Inspection/Auscultation: abdomen normal to inspection; abdomen not distended Musculoskeletal: no cyanosis or clubbing, extremities motor strength 5/5 Skin: no rashes, warm and dry Neurologic: PERRL, EOMI, accommodation nl, no face palsy, no dysarthria moves all extremities and awake; no focal motor deficits and normal [place] [facility]pike Speech / Cognition: normal speech Psychiatric: Orientation: alert, oriented to person and cooperative Results & Data Results & Data ([facility]) Vital Signs (Past 12 Hours) Vital Signs Temp Pulse Resp BP Pulse Ox 03/24/20 15:00 46 L 14 180/90 H 03/24/20 14:30 53 L 16 167/91 H 03/24/20 14:00 50 L 16 147/97 H 03/24/20 13:30 54 L 14 170/96 H 03/24/20 13:00 51 L 15 172/96 H 03/24/20 12:30 50 L 15 185/89 H 03/24/20 12:00 46 L 15 185/82 H 03/24/20 11:30 47 L 12 159/83 H 96 03/24/20 11:19 50 L 168/92 H 03/24/20 10:29 36.5 C 61 20 92 Code Status & VTE Plan VTE Prophylaxis Plan VTE Prophylaxis will be ordered: Yes PG Care Time/CCT Total # of Minutes Spent Total Time Spent with Patient: Total time spent is greater than 50% in coor dination of care (as documented) at patient's floor/unit and/or counseling patient: Coding Level of Care Code 02692 OBS Care - Level 3 Diagnoses Nausea & vomiting R11.2 Dizziness R42 Bradycardia R00.1 HTN (hypertension) I10 History of abdominal aortic aneurysm (AAA) Z86.79 Pre-diabetes R73.03 PVD (peripheral vascular disease) I73.9
[2020-03-24 19:33] LABS: Adenovirus PCR Not Detected (NotDetected); Bordetella parapertussis PCR Not Detected (NotDetected); Bordetella pertussis PCR Not Detected (NotDetected); Chlamydia pneumoniae PCR Not Detected (NotDetected); Coronavirus 229E PCR Not Detected (NotDetected); Coronavirus CoV-2 (COVID19)PCR Not Detected (NotDetected); Coronavirus HKU1 PCR Not Detected (NotDetected); Coronavirus NL63 PCR Not Detected (NotDetected); Coronavirus OC43PCR Not Detected (NotDetected); Human Metapneumovirus PCR Not Detected (NotDetected); Influenza A PCR Not Detected (NotDetected); Influenza B PCR Not Detected (NotDetected); Mycoplasma pneumoniae PCR Not Detected (NotDetected); Parainfluenza Virus 1 PCR Not Detected (NotDetected); Parainfluenza Virus 2 PCR Not Detected (NotDetected); Parainfluenza Virus 3 PCR Not Detected (NotDetected); Parainfluenza Virus 4 PCR Not Detected (NotDetected); Respiratory Syncytial VirusPCR Not Detected (NotDetected); Rhinovirus/Enterovirus PCR Not Detected (NotDetected)
[2020-03-24] MEDS ORDERED: GLUCOSE 10 TABS/TUBE PO PRN (20:11)
[2020-03-24] MEDS ORDERED: DEXTROSE 50% 50 ML SYRINGE IV PRN (20:11)
[2020-03-24] MEDS ORDERED: CARBOHYDRATES FOR HYPOGLYCEMIA PO PRN (20:11)
[2020-03-24] MEDS ORDERED: ACETAMINOPHEN 325 MG TAB PO PRN (20:11)
[2020-03-24] MEDS ORDERED: GLUCAGON FOR INJ 1 MG VIAL SQ PRN (20:11)
[2020-03-24] MEDS ORDERED: ONDANSETRON INJ 2 MG/ML 2 ML VIAL IV PRN (20:11)
[2020-03-24] MEDS ORDERED: GLUCOSE 40% GEL 15 GM TUBE PO PRN (20:11)
--- NOTE | 2020-03-24 20:29 | Electrocardiogram Report ---
Test Reason : Blood Pressure : / mmHG Vent. Rate : 047 BPM Atrial Rate : 047 BPM P-R Int : 204 ms QRS Dur : 098 ms QT Int : 526 ms P-R-T Axes : 067 -15 038 degrees QTc Int : 465 ms Sinus bradycardia Lateral infarct (cited on or before 13-MAR-2019) Abnormal ECG When compared with ECG of 13-MAR-2019 17:05, No significant change was found Confirmed by Davey Looney ([id number]) on 03/24/2020 8:28:28 PM Referred By: REFERRED SELF Confirmed By:Davey Looney
[2020-03-24] MEDS ORDERED: RIVAROXABAN 20 MG TAB PO SCH (21:00)
[2020-03-24] MEDS ORDERED: ROSUVASTATIN CALCIUM 20 MG TAB PO SCH (21:00)
[2020-03-24] MEDS: INSULIN ASPART 100 UNITS/ML 3 ML PEN SC SCH (21:56)
[2020-03-24] MEDS ORDERED: LORazepam 2 MG/ML VIAL (IM USE) IM STA (23:25)
[2020-03-24] MEDS ORDERED: LORazepam 0.5 MG/1 ML VIAL IV STA (23:39)
[2020-03-25 07:47] LABS: Hematocrit (blood only) 44.7 % (42-52); Hemoglobin 14.8 g/dL (14.0-18.0); Mean Corpuscular Hemoglobin 30.2 pg (25-34); Mean Corpuscular Hgb Conc 33.1 g/dL (32-36); Mean Corpuscular Volume 91.2 fL (80-100); Mean Platelet Volume 10.4 fL (7.4-10.4); Platelet Count 170 K/uL (130-400); RDW Coefficient of Variation 14.6 % (11.5-14.5); RDW Standard Deviation 48.9 fL (36.4-46.3); White Blood Count 8.15 K/uL (4.8-10.8)
[2020-03-25] MEDS: INSULIN ASPART 100 UNITS/ML 3 ML PEN SC SCH ×2 (07:55→12:08)
--- NOTE | 2020-03-25 08:10 | Magnetic Resonance Report ---
Brain MRI WITHOUT CONTRAST HISTORY: Cerebellar stroke; dizziness, ataxia TECHNIQUE: Multiplanar multisequence MRI of the brain was performed without the use of contrast. COMPARISON STUDY: Head CT 03/24/2020. FINDINGS: There is no mass, hematoma, midline shift, or acute infarct. The mastoid air cells are stephanie r. The ventricles and sulci demonstrate mild age-related involutional changes. Scattered foci of T2 h yperintensity seen within the periventricular and subcortical white matter are nonspecific but sugges tive of mild to moderate microvascular ischemic changes. The major vascular flow voids at the skull b ase are well-maintained. Mild mucosal thickening within the maxillary sinuses. IMPRESSION: No acute intracranial abnormality. Scattered foci of T2 hyperintensity seen within the periventricula r and subcortical white matter are nonspecific but favor microvascular ischemic change. ACT 112: Negative or not required by law. Electronically signed by: Nabil Langford M.D. 03/25/2020 8:09 AM
[2020-03-25] MEDS ORDERED: METOPROLOL SUCC 50MG EXT REL TAB PO SCH (09:00)
[2020-03-25] MEDS ORDERED: NIFEdipine EXTENDED REL 30 MG TABCR PO SCH (09:00)
[2020-03-25] MEDS ORDERED: TRIAMTERENE/HCTZ 37.5/25MG CAP PO SCH (09:00)
[2020-03-25] MEDS ORDERED: ASPIRIN 81 MG ECTAB PO SCH (09:00)
[2020-03-25 09:36] LABS: Calcium 8.8 mg/dl (8.5-10.1); Magnesium 2.3 mg/dl (1.8-2.4)
[2020-03-25 09:38] LABS: Potassium 3.3 mmol/L (3.5-5.1)
[2020-03-25 09:39] LABS: BUN Creatinine Ratio 28.1 (10-20); Creatinine Clr Calc Pharmacy 49.3 ml/min; Est GFR (Non-African American) 64.7
[2020-03-25 09:40] LABS: Phosphorus 3.4 mg/dl (2.5-4.9)
--- NOTE | 2020-03-25 17:06 | Discharge Summary ---
Date of Service March 25, 2020 Admission HPI Per Admitting Provider 84yo M w/ hx of DM and multiple aneurysms who presents with acute onset nausea, emesis, and dizziness & ataxia. He reports that he was in his normal state of health on Wednesday morning when he woke up. Around noon on Wednesday, he was walking to his store outside, and he felt the urge to throw up. He threw up which was just food he had previously eaten. However, he then had multiple more episodes that afternoon. Around the same time in the afternoon, he noted worsening dizziness. He reports this mostly as ataxia and worsening when he tries to walk. It doesn't really sound like a "room spinning" event so much as just general lightheadedness. He denies any dizziness with head motions. Principal Diagnosis Viral gastroenteritis Discharge Exam Constitutional WD/WN, vitals as above Eyes EOM intact bilaterally; no conjunctival abnormality ENMT external ear and nose normal, oropharynx normal Neck trachea midline, no thyromegaly normal visual inspection Respiratory normal respiratory effort, lungs clear to auscultation no respiratory distress Cardiovascular RRR, no murmur, no edema Gastrointestinal (Abdomen) Inspection/Auscultation: abdomen normal to inspection; abdomen not distended Musculoskeletal no cyanosis or clubbing, extremities motor strength 5/5 Skin no rashes, warm and dry Neurologic PERRL, EOMI, accommodation nl, no face palsy, no dysarthria moves all extremities and awake; no focal motor deficits and normal [place] Hallpike Speech / Cognition: normal speech Psychiatric Orientation: alert, oriented to person and cooperative Discharge Data Allergies Allergy/AdvReac Type Severity Reaction Status Date / Time No Known Allergies Allergy Verified 03/24/20 13:22 Consultations 03/24/20 16:09 ED Decision to Admit Stat Ordered Studies 03/24/20 10:52 CT abd pelvis IV con only Stat 03/24/20 14:38 CT angio head w con Stat CT angio neck with con Stat CT head/brain wo con Stat 03/25/20 00:02 MR brain wo con Routine Hospital Course (1) Nausea & vomiting: Acute onset on Wednesday. Has had >12 episodes with the most recent just bilious. No diarrhea. No abdominal pain. - Ddx includes viral gastroenteritis, cerebellar stroke, inner ear pathology, or maybe even hypoperfusion if he is becoming bradycardic and having symptoms from that. - Covid negative - MRI brain with only small vessel disease; no stroke. - Bradycardia improved off metoprolol. Asked to follow up with Dr. Treviño and hold metoprolol on discharge. - Likely a viral gastroenteritis as his nausea and vomiting resolved by 03/25. Worked with PT/OT without dizziness or ataxia. (2) Dizziness: Mixed picture with his nausea and vomiting. It is not entirely clear if it causes the nausea and vomiting or if he has some orthostasis from dehydration or if it is all together. - Plan as above (3) Bradycardia: Possibly an aspect of his symptoms. - Hold beta-abigail on discharge. - Monitored on tele - Only had sinus bradycardia. (4) HTN (hypertension): BP elevated in the ED at 180/90. - Continue home nifedipine and triamterene-HCTZ - Hold home metoprolol (5) History of abdominal aortic aneurysm (AAA): Repaired ~2011. Noted on CT a/p. - Monitor (6) Pre-diabetes: A1c was 6.4% in 01/2020. - No change on discharge. (7) PVD (peripheral vascular disease): S/p bilateral popliteal repairs at [place]. - Continue ASA & Xarelto Total Time Total Time Spent Total Time Spent (In Minutes): 35 Discharge Plan Discharge Items Patient Disposition: Home - Self-Care Reason For Visit: VOMITING Discharge Diagnosis: Vomiting and dizziness Activity: Resume your previous activity Non-emergency contact: Primary Care Provider Call non-emergency contact if: your symptoms worsen Follow-up/Referrals: Wili Treviño MD [Primary Care Provider] - 04/01/20 11:15 am Diet: Heart Healthy Addtl Attending Provider Instructions: You were admitted for nausea and vomiting. You were also dizzy and had trouble walking, and this was concerning to us for a possible stroke. We did some testing, and everything is looking good. 1) We tested for Covid in case this was an atypical set of symptoms, and this was negative. Great! 2) We did a brain MRI. This is to look for strokes that may be causing these symptoms. This was also normal and showed no recent or remote strokes. There was a bit of something called "small vessel disease" that often comes with things like age and high blood pressure. 3) We also monitored your heart rate. Your heart rate has run quite slow while you were here. It was as low as the 40s overnight. We held your metoprolol, and it is up a bit higher in the 60s range. Please hold your metoprolol (Toprol) until you see Dr. Treviño in the office to be sure your heart rate isn't running too slowly. A slow heart rate can sometimes cause dizziness or lightheadedness. By Wednesday morning, you felt well and the nausea and vomiting were largely gone. We are happy to get you home today, and we would like you to see Dr. Treviño in the next week or two to make sure you're doing well. Pending Studies at Discharge: No Stand-Alone Forms: [facility], Smoking Cessation Medications and DC Order Prescriptions: Continued potassium chloride 10 mEq Tablet Extended Release 30 meq PO BID RF: 0 metformin 500 mg Tablet 500 mg PO BID RF: 0 Xarelto 20 mg Tablet 20 mg PO HS RF: 0 aspirin [Aspirin Low Dose] 81 mg Tablet,Delayed Release (Dr/Ec) 81 mg PO QAM RF: 0 triamterene-hydrochlorothiazid 37.5-25 mg Capsule 1 cap PO QAM RF: 0 nifedipine [Procardia XL] 60 mg Tablet Extended Release 24hr 60 mg PO QAM RF: 0 rosuvastatin 40 mg Tablet 40 mg PO HS RF: 0 Discontinued metoprolol tartrate 50 mg Tablet 50 mg PO QAM RF: 0 Discharge Orders: Discharge Order (Routine); Ordered 03/25/20 Ordered By: Miki Blanco Admission Data Admit Date/Time: 03/24/20 17:48 Attending Provider: Miki Blanco Admit Provider: Miki Blanco Primary Care Provider: Wili Treviño Other Providers: Dameon Jones Other Interventions: Discharge Summary Assessment (RN) Last Done: 03/25/20 12:35 Coding Level of Care Code 98845 OBS Care - Discharge Diagnoses Nausea & vomiting R11.2 Vomiting Intractability: unspecified Vomiting type: unspecified Dizziness R42 Bradycardia R00.1 HTN (hypertension) I10 History of abdominal aortic aneurysm (AAA) Z86.79 Pre-diabetes R73.03 PVD (peripheral vascular disease) I73.9
== END 2020-03-25 13:35 | disposition home or self-care (01) ==
LOC: 2N 10:22 → ED 10:22 → 2N 19:48

== ENCOUNTER 2021-11-11 19:41 | Observation (INO) ==
[2021-11-11] MEDS ORDERED: ONDANSETRON INJ 2 MG/ML 2 ML VIAL IV STA (19:48)
[2021-11-11 21:53] LABS: Basophils # (auto) 0.01 K/uL (0-0.2); Basophils % (auto) 0.1 %; Eosinophils # (auto) 0.03 K/uL (0-0.5); Eosinophils % (auto) 0.3 %; Hematocrit (blood only) 46.2 % (42-52); Hemoglobin 15.8 g/dL (14.0-18.0); Immature Granulocytes # (auto) 0.01 K/uL (0.00-0.02); Immature Granulocytes % (auto) 0.1 %; Lymphocytes % (auto) 13.5 %; Mean Corpuscular Hemoglobin 29.8 pg (25-34); Mean Corpuscular Hgb Conc 34.2 g/dL (32-36); Mean Platelet Volume 10.7 fL (7.4-10.4); Monocytes # (auto) 0.57 K/uL (0.11-0.59); Monocytes % (auto) 5.5 %; Neutrophils # (auto) 8.34 K/uL (1.4-6.5); Neutrophils % (auto) 80.5 %; Platelet Count 193 K/uL (130-400); RDW Coefficient of Variation 13.4 % (11.5-14.5); RDW Standard Deviation 42.6 fL (36.4-46.3); Red Blood Count 5.31 M/uL (4.7-6.1); White Blood Count 10.36 K/uL (4.8-10.8)
[2021-11-11] MEDS ORDERED: SODIUM CHLORIDE 0.9% 1000ML 1,000 ML IV ONE (22:05)
[2021-11-11 22:13] LABS: Albumin Globulin Ratio 1.3 (0.9-2); Albumin Level 4.1 gm/dl (3.4-5.0); Bilirubin,Total 1.3 mg/dl (0.2-1.0); Calcium 9.8 mg/dl (8.5-10.1); Creatinine Clr Calc Pharmacy 46.6 ml/min; Est GFR (African American) 72.3 ml/min; Est GFR (Non-African American) 62.4 ml/min; Globulin 3.2 gm/dl (2.5-4.0); Potassium 3.6 mmol/L (3.5-5.1); Total Protein 7.3 gm/dl (6.0-8.3)
[2021-11-11] MEDS: ONDANSETRON INJ 2 MG/ML 2 ML VIAL IV STA ×2 (22:15→23:31)
--- NOTE | 2021-11-11 22:15 | Emergency Department Note ---
History of Present Illness General Chief complaint: Vomiting Stated complaint: VOMIT, DIZZY, DEHYDRATION, HEADACHE Time Seen by Provider: 11/11/21 21:54 Source: patient and family (Daughter who is at the bedside) Mode of arrival: ambulatory Limitations: no limitations History of Present Illness Maximum Pain Intensity: 8 This patient is an 86-year-old male who comes in after feeling ill since yesterday with nausea and vomiting after lunch. He denies that his abdomen hurts he is thrown up yellowish-green material. no blood or coffee grounds his last bowel movement this morning without diarrhea or constipation it appeared normal no blood or melena. No chest pain or shortness of breath no dysuria hematuria no back pain he had a mild headache which she thinks is from not keeping fluids down no sick contacts. He has had the COVID-vaccine but no booster. No cough no fever. No trauma or injury. No testicular pain or swelling no pain or swelling in his groin. Home Medications Medication Instructions Recorded Confirmed Type aspirin 81 mg tablet,delayed 81 mg PO QAM 06/15/18 11/11/21 History release (Maya Low Dose Aspirin) nifedipine 60 mg tablet,extended 60 mg PO QAM 06/15/18 11/11/21 History release 24 hr (Procardia XL) rosuvastatin 40 mg tablet 40 mg PO HS 06/15/18 11/11/21 History metformin 500 mg tablet 500 mg PO BID 03/02/19 11/11/21 History rivaroxaban 20 mg tablet (Xarelto) 20 mg PO HS 03/02/19 11/11/21 History metoprolol succinate 50 mg 25 mg PO DAILY 04/03/21 11/11/21 History tablet,extended release 24 hr potassium chloride 20 mEq 20 meq PO BID 11/11/21 11/11/21 History tablet,extended release triamterene 75 1 tab PO DAILY 11/11/21 11/11/21 History mg-hydrochlorothiazide 50 mg tablet Allergies Allergy/AdvReac Type Severity Reaction Status Date / Time No Known Allergies Allergy Verified 11/11/21 22:48 Past Med/Surg History Medical History Hiatal hernia moderate per 06/2018 CTA High cholesterol History of abdominal aortic aneurysm (AAA) s/p repair (2011) HTN (hypertension) Lesion of pancreas Nasal polyp Pre-diabetes on metformin PVD (peripheral vascular disease) 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 Surgical History History of AAA (abdominal aortic aneurysm) repair History of vascular surgery b/l popliteal artery aneurysm repair Hx of colonoscopy Family History Father Myocardial infarction No early [place] Brother Family history of diabetes mellitus Sister Family history of diabetes mellitus Social History Smoking Status: Never smoker Second Hand Exposure: No; Hx Alcohol Use: No Hx Substance Use: No Preferred Language: Kosovan Communication Ability: Effective Beliefs That Will Affect Care: None marital status: Current Living Situation: Spouse Current Living Situation Comment: lives in house with 13 steps Feels Safe at Home: Yes Assistive Devices: None Review of Systems A total of 10 systems reviewed and were otherwise negative Physical Exam Vital Signs Vital Signs - 24 hr 11/11/21 19:44 11/11/21 21:48 11/11/21 22:44 Temperature 37 C Temperature Source Temporal Artery Scan Pulse Rate 75 Pulse Rate [Right Finger] 55 L 55 L Pulse Rhythm Regular Pulse Strength Normal Respiratory Rate 18 20 20 Respiratory Effort / Characteristics Non-Labored Spontaneous Respiratory Depth Normal Respiratory Pattern Regular Blood Pressure 169/103 H Blood Pressure [Right Arm] 182/103 H 194/93 H Blood Pressure Mean 125 Blood Pressure Mean [Right Arm] 129 126 Blood Pressure Position Sitting Blood Pressure Position [Right Arm] Sitting Pulse Oximetry 97 96 97 Oxygen Delivery Method Room Air Room Air Room Air Sepsis Recent Fever Within 48 Hours No Sepsis New/Unexplained Change in Mental Status N/A Sepsis Action Taken by Nursing No Action Required 11/11/21 23:06 Temperature Temperature Source Pulse Rate Pulse Rate [Right Finger] 66 Pulse Rhythm Pulse Strength Respiratory Rate 20 Respiratory Effort / Characteristics Respiratory Depth Respiratory Pattern Blood Pressure Blood Pressure [Right Arm] 178/101 H Blood Pressure Mean Blood Pressure Mean [Right Arm] 126 Blood Pressure Position Blood Pressure Position [Right Arm] Sitting Pulse Oximetry 97 Oxygen Delivery Method Room Air Sepsis Recent Fever Within 48 Hours Sepsis New/Unexplained Change in Mental Status Sepsis Action Taken by Nursing General: Well developed well nourished older male who appears in no acute distress, breathing comfortably on room air. Normal speech HEENT: Normal cephalic atraumatic. Pupils are equal round and reactive to light. Extraocular movements are intact. Oropharynx is pink with moist mucous membranes. No swelling of the mouth lips or tongue. Neck: Supple with a midline trachea. No meningeal signs or stiffness, no JVD or bruits. No Stridor. Chest: Clear to auscultation bilaterally. No wheezes or rhonchi. No increased work of breathing. Heart: Regular rate and rhythm without murmurs or gallops. Abdomen: Soft nontender, nondistended without rebound guarding or rigidity. There is a surgical scar from previous aneurysm repair but no obvious hernia redness warmth or drainage. No significant tenderness Extremities: No cyanosis clubbing or edema. No calf tenderness or assymetry. Feet are pink and well-perfused appearing with normal distal pulses and capillary refill. Spine/Back. Non tender to palpation. No CVA tenderness Skin: Good turgor without rashes. Neurologic exam: Cranial nerves two through 12 are intact. Motor and sensation are intact and symmetrical throughout. Course Administered Medications Discontinued Medications Sodium Chloride (Nss 1000ml) 1,000 mls @ 999 mls/hr IV .Q1H1M ONE Stop: 11/11/21 23:05 Last Infusion: 11/11/21 23:18 Dose: 0 mls/hr Documented by: [id number] Admin: 11/11/21 22:14 Dose: 999 mls/hr Documented by: [id number] Ioversol (Optiray 320 100ml) 94 ml IV ONCE ONE Stop: 11/11/21 22:37 Last Admin: 11/11/21 22:36 Dose: 94 ml Documented by: [id number] Ondansetron HCl (Ondansetron Inj 2 Mg/Ml 2 Ml Vial) 4 mg IV NOW STA Stop: 11/11/21 19:49 Last Admin: 11/11/21 21:33 Dose: 4 mg Documented by: [id number] Ondansetron HCl (Ondansetron Inj 2 Mg/Ml 2 Ml Vial) 4 mg IV NOW STA Stop: 11/11/21 22:06 Last Admin: 11/11/21 23:31 Dose: 4 mg Documented by: [id number] Medical Decision Making Differential Diagnosis Dehydration, gastroenteritis, pancreatitis, liver or gallbladder disease, colitis, AAA, UTI, cardiac disease, sepsis, electrolyte or metabolic abnormality, vascular disease Medical Records Attestation: I reviewed the patient's medical records. Home Medications Current Medication List: was personally reviewed by me Laboratory Data Attestation: I reviewed the patient's lab results. Result diagrams: 11/11/21 21:30 11/11/21 21:30 Lab Results 11/11/21 11/11/21 11/11/21 Range/Units 21:30 21:30 21:30 WBC 10.36 (4.8-10.8) K/uL RBC 5.31 (4.7-6.1) M/uL Hgb 15.8 (14.0-18.0) g/dL Hct 46.2 (42-52) % MCV 87.0 (80-100) fL MCH 29.8 (25-34) pg MCHC 34.2 (32-36) g/dL RDW Std Deviation 42.6 (36.4-46.3) fL RDW Coeff of Michael 13.4 (11.5-14.5) % Plt Count 193 (130-400) K/uL MPV 10.7 H (7.4-10.4) fL Immature Gran % (Auto) 0.1 % Neut % (Auto) 80.5 % Lymph % (Auto) 13.5 % [place] % (Auto) 5.5 % Eos % (Auto) 0.3 % Baso % (Auto) 0.1 % Neut # (Auto) 8.34 H (1.4-6.5) K/uL Lymph # (Auto) 1.40 (1.2-3.4) K/uL [place] # (Auto) 0.57 (0.11-0.59) K/uL Eos # (Auto) 0.03 (0-0.5) K/uL Baso # (Auto) 0.01 (0-0.2) K/uL Immature Gran # (Auto) 0.01 (0.00-0.02) K/uL PT (9.0-12.0) Seconds INR (0.9-1.1) APTT (21.0-31.0) Seconds PTT Ratio Sodium 139 (136-145) mmol/L Potassium 3.6 (3.5-5.1) mmol/L Chloride 100 (98-107) mmol/L Carbon Dioxide 29 (21-32) mmol/L Anion Gap 10 (3-11) BUN 18 (6-23) mg/dl Creatinine 1.06 (0.6-1.4) mg/dl Est Cr Clr Drug Dosing 46.6 ml/min Est GFR ( Amer) 72.3 ml/min Est GFR (Non-Af Amer) 62.4 ml/min BUN/Creatinine Ratio 17.0 (10-20) Glucose 178 H (70-99(Fasting)) mg/dl Calcium 9.8 (8.5-10.1) mg/dl Total Bilirubin 1.3 H (0.2-1.0) mg/dl AST 14 (13-39) U/L ALT 9 (7-52) U/L Alkaline Phosphatase 58 (34-104) U/L Troponin I High Sens 354.2 H* (0-20) pg/ml Total Protein 7.3 (6.0-8.3) gm/dl Albumin 4.1 (3.4-5.0) gm/dl Globulin 3.2 (2.5-4.0) gm/dl Albumin/Globulin Ratio 1.3 (0.9-2) Lipase 35 (11-82) U/L Urine Color Urine Appearance (Clear) Urine pH (4.5-7.5) POC Urine pH (4.5-7.5) Ur Specific Cullen (1.000-1.030) Urine Protein (Negative) POC Urine Protein (Negative) Urine Glucose (UA) (Negative) POC Ur Glucose (UA) (Normal) Urine Ketones (Negative) POC Urine Ketones (Negative) Urine Blood (Negative) POC Urine Blood (Negative) Urine Nitrite (Negative) POC Urine Nitrite (Negative) Urine Bilirubin (Negative) POC Urine Bilirubin (Negative) Urine Urobilinogen (Negative) POC Urine Urobilinogen (Normal) Ur Leukocyte Esterase (Negative) POC U Leukocyte Esteras (Negative) Urine WBC (Auto) (0-5) /hpf Urine RBC (Auto) (0-4) /hpf U Hyaline Cast (Auto) (0-5) /lpf U Epithel Cells (Auto) (0-5) /lpf Urine Bacteria (Auto) (Negative) SARS-CoV-2, RNA, NAAT (NEGATIVE) 11/11/21 11/11/21 11/11/21 Range/Units 22:12 22:20 23:20 WBC (4.8-10.8) K/uL RBC (4.7-6.1) M/uL Hgb (14.0-18.0) g/dL Hct (42-52) % MCV (80-100) fL MCH (25-34) pg MCHC (32-36) g/dL RDW Std Deviation (36.4-46.3) fL RDW Coeff of Michael (11.5-14.5) % Plt Count (130-400) K/uL MPV (7.4-10.4) fL Immature Gran % (Auto) % Neut % (Auto) % Lymph % (Auto) % [place] % (Auto) % Eos % (Auto) % Baso % (Auto) % Neut # (Auto) (1.4-6.5) K/uL Lymph # (Auto) (1.2-3.4) K/uL [place] # (Auto) (0.11-0.59) K/uL Eos # (Auto) (0-0.5) K/uL Baso # (Auto) (0-0.2) K/uL Immature Gran # (Auto) (0.00-0.02) K/uL PT 16.7 H (9.0-12.0) Seconds INR 1.6 H (0.9-1.1) APTT 32.2 H (21.0-31.0) Seconds PTT Ratio 1.2 Sodium (136-145) mmol/L Potassium (3.5-5.1) mmol/L Chloride (98-107) mmol/L Carbon Dioxide (21-32) mmol/L Anion Gap (3-11) BUN (6-23) mg/dl Creatinine (0.6-1.4) mg/dl Est Cr Clr Drug Dosing ml/min Est GFR ( Amer) ml/min Est GFR (Non-Af Amer) ml/min BUN/Creatinine Ratio (10-20) Glucose (70-99(Fasting)) mg/dl Calcium (8.5-10.1) mg/dl Total Bilirubin (0.2-1.0) mg/dl AST (13-39) U/L ALT (7-52) U/L Alkaline Phosphatase (34-104) U/L Troponin I High Sens (0-20) pg/ml Total Protein (6.0-8.3) gm/dl Albumin (3.4-5.0) gm/dl Globulin (2.5-4.0) gm/dl Albumin/Globulin Ratio (0.9-2) Lipase (11-82) U/L Urine Color Yellow Urine Appearance Clear (Clear) Urine pH 6.5 (4.5-7.5) POC Urine pH (4.5-7.5) Ur Specific Cullen > 1.045 H (1.000-1.030) Urine Protein Trace H (Negative) POC Urine Protein (Negative) Urine Glucose (UA) Negative (Negative) POC Ur Glucose (UA) (Normal) Urine Ketones Negative (Negative) POC Urine Ketones (Negative) Urine Blood Negative (Negative) POC Urine Blood (Negative) Urine Nitrite Negative (Negative) POC Urine Nitrite (Negative) Urine Bilirubin Negative (Negative) POC Urine Bilirubin (Negative) Urine Urobilinogen Negative (Negative) POC Urine Urobilinogen (Normal) Ur Leukocyte Esterase Negative (Negative) POC U Leukocyte Esteras (Negative) Urine WBC (Auto) 1-5 (0-5) /hpf Urine RBC (Auto) 0-4 (0-4) /hpf U Hyaline Cast (Auto) 5-10 H (0-5) /lpf U Epithel Cells (Auto) >30 H (0-5) /lpf Urine Bacteria (Auto) Negative (Negative) SARS-CoV-2, RNA, NAAT NEGATIVE (NEGATIVE) 11/11/21 Range/Units 23:20 WBC (4.8-10.8) K/uL RBC (4.7-6.1) M/uL Hgb (14.0-18.0) g/dL Hct (42-52) % MCV (80-100) fL MCH (25-34) pg MCHC (32-36) g/dL RDW Std Deviation (36.4-46.3) fL RDW Coeff of Michael (11.5-14.5) % Plt Count (130-400) K/uL MPV (7.4-10.4) fL Immature Gran % (Auto) % Neut % (Auto) % Lymph % (Auto) % [place] % (Auto) % Eos % (Auto) % Baso % (Auto) % Neut # (Auto) (1.4-6.5) K/uL Lymph # (Auto) (1.2-3.4) K/uL [place] # (Auto) (0.11-0.59) K/uL Eos # (Auto) (0-0.5) K/uL Baso # (Auto) (0-0.2) K/uL Immature Gran # (Auto) (0.00-0.02) K/uL PT (9.0-12.0) Seconds INR (0.9-1.1) APTT (21.0-31.0) Seconds PTT Ratio Sodium (136-145) mmol/L Potassium (3.5-5.1) mmol/L Chloride (98-107) mmol/L Carbon Dioxide (21-32) mmol/L Anion Gap (3-11) BUN (6-23) mg/dl Creatinine (0.6-1.4) mg/dl Est Cr Clr Drug Dosing ml/min Est GFR ( Amer) ml/min Est GFR (Non-Af Amer) ml/min BUN/Creatinine Ratio (10-20) Glucose (70-99(Fasting)) mg/dl Calcium (8.5-10.1) mg/dl Total Bilirubin (0.2-1.0) mg/dl AST (13-39) U/L ALT (7-52) U/L Alkaline Phosphatase (34-104) U/L Troponin I High Sens (0-20) pg/ml Total Protein (6.0-8.3) gm/dl Albumin (3.4-5.0) gm/dl Globulin (2.5-4.0) gm/dl Albumin/Globulin Ratio (0.9-2) Lipase (11-82) U/L Urine Color Urine Appearance (Clear) Urine pH (4.5-7.5) POC Urine pH 5 (4.5-7.5) Ur Specific Cullen (1.000-1.030) Urine Protein (Negative) POC Urine Protein Trace H (Negative) Urine Glucose (UA) (Negative) POC Ur Glucose (UA) Normal (Normal) Urine Ketones (Negative) POC Urine Ketones Negative (Negative) Urine Blood (Negative) POC Urine Blood Negative (Negative) Urine Nitrite (Negative) POC Urine Nitrite Negative (Negative) Urine Bilirubin (Negative) POC Urine Bilirubin Negative (Negative) Urine Urobilinogen (Negative) POC Urine Urobilinogen Normal (Normal) Ur Leukocyte Esterase (Negative) POC U Leukocyte Esteras Negative (Negative) Urine WBC (Auto) (0-5) /hpf Urine RBC (Auto) (0-4) /hpf U Hyaline Cast (Auto) (0-5) /lpf U Epithel Cells (Auto) (0-5) /lpf Urine Bacteria (Auto) (Negative) SARS-CoV-2, RNA, NAAT (NEGATIVE) Imaging Data Attestation: I personally reviewed and interpreted this imaging study as follows: My Impression: Chest x-rayno free air. No acute infiltrate, failure, pneumothorax seen. Radiologist's Impression: [facility]- Ct abd and pelvis with contrast-no bowel obstruction. No free fluid, fluid collection or free air. Hiatal hernia. Abdominal aneurysm measuring 4 cm. No evidence of rupture. Cholelithiasis without evidence of cholecystitis no acute abnormality in the remainder of the organs ECG Data Attestation: I personally reviewed and interpreted this ECG as follows: Indication: + abdominal pain Rate (beats per minute): 52 Rhythm: + sinus bradycardia ECG Intervals/blocks: + Normal QRS, + Normal QT and + Normal CO ECG Badger: + Normal ECG ST segments: + Normal ST segments ECG Findings: no PACs or no PVCs Comparison ECG Date: from (03/24/20) Change: no significant change Additional Comments: EKG #2: Sinus bradycardia rate of 58. Poor baseline but it appears that he is dropping beats and has nonconducted P waves at times with a second-degree block. This is new compared to the first. MDM Narrative This patient comes in as described above. He was placed in room a 9. He he comes in after having nausea and vomiting since yesterday. He does have a history of having an aneurysm in his abdomen that was repaired in the past. His incision appears to be intact he is not significantly tender but that still of concern. He could also have adhesions or bowel obstruction or other potential etiologies EKG was obtained he was placed on a quality assurance monitor body. There is no chest pain and his EKG does not suggest acute coronary syndrome or arrhythmia. IV access was established and he was hydrated with an IV normal saline bolus and given Zofran 4 mg IV. I did order blood work as well as a CAT scan of his abdomen , chest x-ray, and urinalysis and culture. he was reassessed frequently. The CAT scan does not show any acute abnormalities to explain his symptoms chest x-ray does not show any acute abnormalities. COVID testing was negative. Urinalysis was unremarkable. His troponin came back at 350. When I going to check on him he is feeling significantly better. He has no chest pain or lightheadedness. I did repeat his EKG and he has normal sinus rhythm with a second-degree AV block. I do think he needs to be admitted for further treatment and evaluation of consulted Dr. Negron to see the patient in the ER for these measures. Despite having bradycardia the patient actually remained hypertensive in the ED. Continuous cardiac monitoring: Orders placed in EMR for continuous cardiac mon itoring. [place] interpretation the patient was noted to be in sinus bradycardia with a rate of 52 Impression & Plan Elevated troponin, Nausea & vomiting, History of abdominal aortic aneurysm (AAA), Second degree atrioventricular block, Lab test negative for COVID-19 virus Discharge Plan Visit Data Chief Complaint: Vomiting Stated Complaint: VOMIT, DIZZY, DEHYDRATION, HEADACHE ED Provider: Jaime Sotelo Discharge Problem: Elevated troponin, Nausea & vomiting, History of abdominal aortic aneurysm (AAA), Second degree atrioventricular block, Lab test negative for COVID-19 virus Forms Stand Alone Forms: My [facility] Control Prescriptions Prescriptions: No Action metformin 500 mg Tablet 500 mg PO BID RF: 0 Xarelto 20 mg Tablet 20 mg PO HS RF: 0 aspirin [Maya Low Dose Aspirin] 81 mg Tablet,Delayed Release (Dr/Ec) 81 mg PO QAM RF: 0 nifedipine [Procardia XL] 60 mg Tablet Extended Release 24hr 60 mg PO QAM RF: 0 rosuvastatin 40 mg Tablet 40 mg PO HS RF: 0 metoprolol succinate 50 mg tablet extended release 24 hr 25 mg PO DAILY RF: 0 triamterene-hydrochlorothiazid 75-50 mg Tablet 1 tab PO DAILY RF: 0 potassium chloride 20 mEq Tablet Extended Release 20 meq PO BID RF: 0 Referrals Referrals: Wili Treviño MD [Primary Care Provider] - Discharge Problem: Nausea & vomiting Qualifiers: Vomiting type: unspecified Qualified Code(s): R11.2 - Nausea with vomiting, unspecified
[2021-11-11] MEDS ORDERED: OPTIRAY 320 100ml IV ONE (22:36)
[2021-11-11 22:48] LABS: INR 1.6 (0.9-1.1); Partial Thromboplastin Ratio 1.2; Partial Thromboplastin Time 32.2 Seconds (21.0-31.0); Prothrombin Time 16.7 Seconds (9.0-12.0)
[2021-11-11 23:33] LABS: POC Urine Bilirubin Negative (Negative); POC Urine Blood Negative (Negative); POC Urine Glucose Normal (Normal); POC Urine Ketones Negative (Negative); POC Urine Leukocytes Negative (Negative); POC Urine Nitrite Negative (Negative); POC Urine Protein Trace (Negative); POC Urine Urobilinogen Normal (Normal); POC Urine pH 5 (4.5-7.5)
[2021-11-11 23:38] LABS: Appearance Urine Clear (Clear); Bacteria Urine Automated Negative (Negative); Bilirubin Urine Negative (Negative); Blood Urine Negative (Negative); Color Urine Yellow; Epithelial Cell Urine Auto >30 /lpf (0-5); Glucose Urine UA Negative (Negative); Ketones Urine Negative (Negative); Leukocyte Esterase Urine Negative (Negative); Nitrite Urine Negative (Negative); Protein Urine Trace (Negative); RBC Urine Automated 0-4 /hpf (0-4); Specific Gravity Urine > 1.045 (1.000-1.030); Urobilinogen Urine Negative (Negative); pH Urine 6.5 (4.5-7.5)
--- NOTE | 2021-11-11 23:42 | History & Physical Report ---
Date of Service November 11, 2021 Assessment & Plan (1) Nausea & vomiting: Plan: 86 year old male w/ PMHx of HTN, AAA, lower extremity on Eliquis, DM (a1c 6.7), PVD, bradycardia who presents w/ nausea, vomiting since the day prior. Considered cardiogenic vs viral gastritis vs gallbladder. - vasculopathy. no diarrhea. CT abd w/ cholelithiasis. - monitor on telemetry; cardiac workup; echo. repeat ecg, trend trop - defer stool studies or gallbladder imaging at this time - consult cardiology - replete electrolytes (2) Second degree atrioventricular block: Plan: - lyme neg - see above (3) Elevated troponin: Plan: - hs trop elev to 300s. trend (4) Diabetes mellitus: Plan: - previously preDM. Recent A1c 6.7 09/2021 - BSG achs, defer SSI for now (5) PVD (peripheral vascular disease): Plan: - w/ hx of AAA and fem-pop bypass - continue home regimen (6) History of abdominal aortic aneurysm (AAA): Plan: - noted (7) HTN (hypertension): Plan: - continue home regimen, but hold metoprolol. chronic bradycardia, but will assess for response to nifedipine first (8) half-way current use of anticoagulant: Plan: - hold home Xarelto. temporarily use therapeutic Lovenox in case need intervention (e.g. if NSTEMI) Plan: FEN/GI: DM2, HH. No IV fluids ppx: therapeutic Lovenox temporarily code: full dispo: med tele History of Present Illness Chief Complaint: nausea, vomiting, dizziness Primary Care Provider: Wili Treviño MD 86 year old male w/ PMHx of HTN, AAA, lower extremity clot on Eliquis, DM (a1c 6.7), PVD, bradycardia who presents w/ nausea, vomiting, dizziness since 11/10/21. He has had progressive malaise since eating a well-done bison burger at a restaurant on 11/08/21. He has had q2-3hour intractable nausea and emesis since 11/10/21, mostly yellow in color. He denies any chest pain or shortness of breath. His does not have similar symptoms. He continued to have emeisis in the ED. Mild periumbilical discomfort after emesis. No hematemesis, bloody stool, or melena. Patient had 2-3 days of similar intractable nausea and vomiting 3 weeks ago, which he also attributes to eating out. Currently, he is not tolerating PO. He denies having tick bites. Denies hx of MS or stroke. Lives w/ . ED course. 1L NSS bolus. Zofran. Vitals: Chronic bradycardia, mostly in the 50s. Labs: wbc 10.36. Hb 15.8. K 3.6. Cr 1.96, at baseline. t bili 1.3. hstrop 354.2. Lyme Ab neg. ecnd degree AV block Mobitz 1, new vs previous ecg in 2019. CT abd: Cholelithiasis. No acute findings. Allergies Allergy/AdvReac Type Severity Reaction Status Date / Time No Known Allergies Allergy Verified 11/11/21 22:48 Home Medications Medication Instructions Recorded Confirmed Type aspirin 81 mg tablet,delayed 81 mg PO QAM 06/15/18 11/11/21 History release ([facility] Low Dose Aspirin) nifedipine 60 mg tablet,extended 60 mg PO QAM 06/15/18 11/11/21 History release 24 hr (Procardia XL) rosuvastatin 40 mg tablet 40 mg PO HS 06/15/18 11/11/21 History metformin 500 mg tablet 500 mg PO BID 03/02/19 11/11/21 History rivaroxaban 20 mg tablet (Xarelto) 20 mg PO HS 03/02/19 11/11/21 History metoprolol succinate 50 mg 25 mg PO DAILY 04/03/21 11/11/21 History tablet,extended release 24 hr potassium chloride 20 mEq 20 meq PO BID 11/11/21 11/11/21 History tablet,extended release triamterene 75 1 tab PO DAILY 11/11/21 11/11/21 History mg-hydrochlorothiazide 50 mg tablet ondansetron 4 mg disintegrating 4 mg PO Q8H PRN 3 Days #9 tab 11/12/21 Rx tablet Past Med/Surg History Medical History (Updated 11/12/21 @ 01:47 by Tutu Mckay MD) Hiatal hernia moderate per 06/2018 CTA High cholesterol History of abdominal aortic aneurysm (AAA) s/p repair (2011) HTN (hypertension) Lesion of pancreas half-way current use of anticoagulant Nasal polyp Pre-diabetes on metformin PVD (peripheral vascular disease) 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 Surgical History History of AAA (abdominal aortic aneurysm) repair History of vascular surgery b/l popliteal artery aneurysm repair Hx of colonoscopy Family History Father Myocardial infarction No early MS Brother Family history of diabetes mellitus Sister Family history of diabetes mellitus Social History Smoking Status: Never smoker Second Hand Exposure: No; Hx Alcohol Use: Yes Alcohol type: wine and hard liquor Hx Substance Use: No Preferred Language: Lebanese Communication Ability: Effective Curer Acid Drum Required: No Beliefs That Will Affect Care: None marital status: Current Living Situation: Spouse Current Living Situation Comment: lives in house with 13 steps Feels Safe at Home: Yes Assistive Devices: None Review of Systems Review of Systems: All systems reviewed & are unremarkable except as noted in HPI & below No diarrhea. Had slight frontal [place] today. No fever, chills, urinary symptoms, palpitations. Physical Exam Physical Exam: General: Grossly A&O. NAD. Cooperative. HEENT: Atraumatic, normocephalic. EOMI. PERRL. No LAD. Pulm: CTAB. -wheezes, -rales, -rhonchi. No respiratory distress. Cardiac: RRR, -mrg. Radial pulses intact and symmetrical. No LE edema. Abdominal: Nontender, nondistended, soft. Msk: Moving all extrem. Neuro: Normal strength and sensation of extremities. Integ: Warm, dry, intact. Results & Data Results & Data ([facility]) Vital Signs (Past 12 Hours) Vital Signs Temp Pulse Pulse Resp BP BP Pulse Ox 11/11/21 23:06 66 20 178/101 H 97 11/11/21 22:44 55 L 20 194/93 H 97 11/11/21 21:48 55 L 20 182/103 H 96 11/11/21 19:44 37 C 75 18 169/103 H 97 Laboratory Results Cardiac Enzymes 11/11/21 11/11/21 Range/Units 21:30 21:30 AST 14 (13-39) U/L Troponin I High Sens 354.2 H* (0-20) pg/ml Coagulation 11/11/21 Range/Units 22:20 PT 16.7 H (9.0-12.0) Seconds APTT 32.2 H (21.0-31.0) Seconds CBC 11/11/21 Range/Units 21:30 WBC 10.36 (4.8-10.8) K/uL RBC 5.31 (4.7-6.1) M/uL Hgb 15.8 (14.0-18.0) g/dL Hct 46.2 (42-52) % Plt Count 193 (130-400) K/uL Neut # (Auto) 8.34 H (1.4-6.5) K/uL Lymph # (Auto) 1.40 (1.2-3.4) K/uL [place] # (Auto) 0.57 (0.11-0.59) K/uL Eos # (Auto) 0.03 (0-0.5) K/uL Baso # (Auto) 0.01 (0-0.2) K/uL Comprehensive Metabolic Panel 11/11/21 Range/Units 21:30 Sodium 139 (136-145) mmol/L Potassium 3.6 (3.5-5.1) mmol/L Chloride 100 (98-107) mmol/L Carbon Dioxide 29 (21-32) mmol/L BUN 18 (6-23) mg/dl Creatinine 1.06 (0.6-1.4) mg/dl Glucose 178 H (70-99(Fasting)) mg/dl Calcium 9.8 (8.5-10.1) mg/dl AST 14 (13-39) U/L ALT 9 (7-52) U/L Alkaline Phosphatase 58 (34-104) U/L Total Protein 7.3 (6.0-8.3) gm/dl Albumin 4.1 (3.4-5.0) gm/dl Intake and Output 11/11/21 11/11/21 11/12/21 14:59 22:59 06:59 Intake Total 1000 / 1000 Balance 1000 / 1000 Intake: IV 1000 / 1000 Sodium Chloride 0.9% 1000ML 1, 1000 / 1000 000 ml @ 999 mls/hr IV .Q1H1M ONE Rx#:[id number] Other: Weight 75.1 kg Weight Measurement Method Built in [facility] Patient Weight 11/12/21 06:59 Weight 75.1 kg Diagnostic Findings cxr: per my read, no acute findings ct abd/pelv w/ contrast: statrad: No bowel obstruction. No free fluid, fluid collection, or free air. Hiatal hernia. Abdominal aortic aneurysm measuring up to 4 cm. No evidence of rupture. Cholelithiasis without evidence of cholecystitis. No acute abnormality in the remainder of the organs. Radiologist: Koffi Machado MD Phone: [phone]. Study ready at 22:44 and initial results transmitted at 22:56. Code Status & VTE Plan Code Status full VTE Prophylaxis Plan VTE Prophylaxis will be ordered: Yes Supervising Physician Co-Signing Physician Notes Attending addendum: I have physically seen this patient, have supervised the medical residents activities, and agree with the H&P unless as otherwise noted. Assessment and Plan: Elevated troponin/secondary heart block/hypertension- The patient will be admitted to telemetry for serial cardiac enzymes, serial EKG's, cardiac rhythm monitoring and a 2-D echocardiogram with Dopplers. Continue metoprolol succinate, aspirin, potassium chloride and triamterene/HCTZ Consult cardiology Temporarily holding Xarelto and placing on Lovenox for possible procedure Diabetes mellitus- Hold metformin Place on Accu-Cheks before meals and at bedtime with allowed coverage per scale Check hemoglobin A1c Hyperlipidemia- Continue rosuvastatin Check a fasting lipid panel Nausea and vomiting- Treat symptomatically Remaining orders and notations as noted Resident Activity Tracking Resident Involvement: Resident Care Provided Care Provided: Adult Hospital Medicine (1) Nausea & vomiting Vomiting type: unspecified Qualified Code(s): R11.2 - Nausea with vomiting, unspecified
[2021-11-12 01:09] LABS: Lyme Ab IgG w/WB Rflx Negative (Negative); Lyme Ab IgM w/WB Rflx Negative (Negative)
[2021-11-12] MEDS ORDERED: ACETAMINOPHEN 325 MG TAB PO PRN (01:57)
[2021-11-12] MEDS ORDERED: POLYETHYLENE (MIRALAX) 17 GM PACK PO PRN (01:57)
[2021-11-12] MEDS ORDERED: ONDANSETRON INJ 2 MG/ML 2 ML VIAL IV PRN (01:57)
[2021-11-12] MEDS ORDERED: NIFEdipine EXTENDED REL 30 MG TABCR PO STA (02:06)
[2021-11-12 07:25] LABS: Hematocrit (blood only) 42.2 % (42-52); Hemoglobin 14.1 g/dL (14.0-18.0); Mean Corpuscular Hemoglobin 29.4 pg (25-34); Mean Corpuscular Hgb Conc 33.4 g/dL (32-36); Mean Corpuscular Volume 88.1 fL (80-100); Mean Platelet Volume 10.4 fL (7.4-10.4); Platelet Count 165 K/uL (130-400); RDW Coefficient of Variation 13.4 % (11.5-14.5); RDW Standard Deviation 43.3 fL (36.4-46.3); Red Blood Count 4.79 M/uL (4.7-6.1); White Blood Count 8.03 K/uL (4.8-10.8)
--- NOTE | 2021-11-12 07:27 | XRay Report ---
XR chest 1V portable HISTORY: 86 years-old Male n/v acute nausea and vomiting with chest pain COMPARISON: CT abdomen and pelvis of same day, chest radiograph 03/24/2020, CTA chest 06/15/2018. TECHNIQUE: Portable AP view of the chest FINDINGS: There is a 2 cm nodular density of the left midlung redemonstrated correlating with a calcified pleur al plaque. The cardiac silhouette is enlarged. No pneumothorax, large pleural effusion or overt pulmo nary edema. Mild bibasilar densities suggest atelectasis. Hiatal hernia. Degenerative changes of the shoulders and spine. IMPRESSION: No acute process. ACT 112: Negative or not required by law. The above report was generated using voice recognition software. It may contain grammatical, syntax o r spelling errors. Electronically signed by: Mani Noland M.D. 11/12/2021 7:26 AM
[2021-11-12 07:39] LABS: BUN Creatinine Ratio 17.3 (10-20); Calcium 8.8 mg/dl (8.5-10.1); Creatinine Clr Calc Pharmacy 47.5 ml/min; Est GFR (Non-African American) 63.8 ml/min; Magnesium 1.7 mg/dl (1.7-2.4); Potassium 3.2 mmol/L (3.5-5.1)
--- NOTE | 2021-11-12 07:49 | Hospitalist Progress Note ---
Date of Service November 12, 2021 Assessment & Plan (1) Nausea & vomiting: Plan: 86 year old male w/ PMHx of HTN, AAA, lower extremity on Eliquis, DM (a1c 6.7), PVD, bradycardia who presents w/ nausea, vomiting since the day prior. Considered cardiogenic vs viral gastritis vs gallbladder. - vasculopathy. no diarrhea. CT abd w/ cholelithiasis. - monitor on telemetry; cardiac workup; echo. repeat ecg, trend trop - defer stool studies or gallbladder imaging at this time - consult cardiology - replete electrolytes (2) Second degree atrioventricular block: Plan: - lyme neg - see above (3) Elevated troponin: Plan: - hs trop elev to 300s. trend (4) Diabetes mellitus: Plan: - previously preDM. Recent A1c 6.7 09/2021 - BSG achs, defer SSI for now (5) PVD (peripheral vascular disease): Plan: - w/ hx of AAA and fem-pop bypass - continue home regimen (6) History of abdominal aortic aneurysm (AAA): Plan: - noted (7) HTN (hypertension): Plan: - continue home regimen, but hold metoprolol. 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 temporarily use therapeutic Lovenox in case need intervention (e.g. if NSTEMI) Plan: FEN/GI: DM2, HH. No IV fluids ppx: therapeutic Lovenox temporarily code: full dispo: med tele Admission and Anticipated Discharge Date Admission Date: November 11, 2021 Review of Systems Constitutional: as per Subjective / HPI Results & Data Results & Data ([facility]) Vital Signs (Past 12 Hours) Vital Signs Temp Pulse Pulse Resp BP BP Pulse Ox 11/12/21 06:58 36.4 C L 49 L 20 134/74 95 11/12/21 02:55 36.6 C 53 L 18 168/76 H 97 11/12/21 00:35 36.5 C 56 L 60 16 191/93 H 94 11/12/21 00:22 73 20 161/94 H 98 11/11/21 23:06 66 20 178/101 H 97 11/11/21 22:44 55 L 20 194/93 H 97 11/11/21 21:48 55 L 20 182/103 H 96 (1) Nausea & vomiting Vomiting type: unspecified Qualified Code(s): R11.2 - Nausea with vomiting, unspecified
--- NOTE | 2021-11-12 08:31 | CT Scan Report ---
CT SCAN OF THE ABDOMEN AND PELVIS WITH IV CONTRAST CLINICAL HISTORY: Generalized abdominal pain. Vomiting. COMPARISON STUDY: Abdominal CT dated 03/24/2020. TECHNIQUE: Following the IV administration of 94 cc of Optiray 320, CT scan of the abdomen and pelvi s is performed from the lung bases to the proximal femora. Images are reviewed in the axial, sagittal , and coronal planes. IV contrast was administered without complication. A dose lowering technique wa s utilized adhering to the principles of ALARA. CT DOSE: 348.01 mGy.cm FINDINGS: Lung bases: The heart is enlarged noting trace pericardial effusion. The coronary arteries and mitral annulus are densely calcified. There is no airspace consolidation or pleural effusion. Subpleural re ticulation is noted at both lung bases. There is bibasilar scarring/atelectasis. There is a moderate hiatal hernia. Liver: The contrast-enhanced liver is normal in size, contour, and attenuation. There is no intrahepa tic biliary ductal dilatation. The hepatic veins and portal veins are patent. Gallbladder: There are calcified gallstones with no CT evidence of acute cholecystitis. Spleen: Normal in size and attenuation. Pancreas: An 11 mm cystic lesion in the pancreatic neck seen on image #97 has modestly decreased in s ize from previous and is typical for a sidebranch IPMN. The pancreas is otherwise normal as visualize d. Adrenal glands: Bilateral adrenal nodules are unchanged and measure up to 1.5 cm. Kidneys: The contrast enhanced kidneys demonstrate mild cortical atrophy and are without hydronephros is. The kidneys enhance symmetrically. Abdominal vasculature: There is advanced atherosclerotic calcification of the abdominal aorta. An inf rarenal abdominal aortic aneurysm measures 4.2 x 3.9 cm (AP x transverse). There is mild aneurysmal d ilatation of the iliac arteries. This measures up to 2.1 cm on the right and 1.8 cm on the left. Aneu rysmal dilatation of the right internal iliac artery measures up to 1.5 cm. Bowel: There is mild colonic diverticulosis without CT evidence of acute diverticulitis. No bowel obs truction is seen. Moderate fecal retention is noted throughout the colon. The appendix is well-visua lized and normal. Peritoneum: There is no intraperitoneal free air or abdominal ascites. Lymphadenopathy: None. Pelvic viscera: Postoperative change is noted in the groin bilaterally. The prostate gland is enlarge d and heterogeneous noting median lobe hypertrophy. The bladder wall is thickened and trabeculated in dicating chronic outlet obstruction. The bladder is distended. Skeletal structures: The skeletal structures are osteopenic. There is moderate lumbosacral spondylosi s. No lytic or blastic lesions are seen. IMPRESSION: 1. No acute infectious or inflammatory findings are identified in the abdomen or pelvis. 2. There is a 4.2 x 3.9 cm infrarenal abdominal aortic aneurysm. This is similar to previous. 3. 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 4. Cholelithiasis. 5. Moderate constipation. 6. Cardiomegaly and hiatal hernia. 7. Additional findings as above. ACT 112: Negative or not required by law. Electronically signed by: Domo Stevens M.D. 11/12/2021 8:29 AM
[2021-11-12] MEDS ORDERED: ASPIRIN 81 MG ECTAB PO SCH (09:00)
[2021-11-12] MEDS ORDERED: ENOXAPARIN 80 MG/0.8 ML SYR SQ SCH (09:00)
[2021-11-12] MEDS ORDERED: TRIAMTERENE/HCTZ 37.5/25MG TAB PO SCH (09:00)
[2021-11-12] MEDS ORDERED: NIFEDIPINE 60 MG PO SCH (09:00)
[2021-11-12] MEDS ORDERED: METOPROLOL SUCC 25MG EXT REL TAB PO SCH (09:00)
[2021-11-12] MEDS ORDERED: POTASSIUM CHLORIDE CRTAB 20 MEQ TABCR PO ONE (09:00)
--- NOTE | 2021-11-12 11:42 | XCELERA ---
[id number]
--- NOTE | 2021-11-12 17:32 | Discharge Summary ---
Date of Service November 12, 2021 Admission HPI Per Admitting Provider 86 year old male w/ PMHx of HTN, AAA, lower extremity clot on Eliquis, DM (a1c 6.7), PVD, bradycardia who presents w/ nausea, vomiting, dizziness since 11/10/21. He has had progressive malaise since eating a well-done bison burger at a restaurant on 11/08/21. He has had q2-3hour intractable nausea and emesis since 11/10/21, mostly yellow in color. He denies any chest pain or shortness of breath. His does not have similar symptoms. He continued to have emeisis in the ED. Mild periumbilical discomfort after emesis. No hematemesis, bloody stool, or melena. Patient had 2-3 days of similar intractable nausea and vomiting 3 weeks ago, which he also attributes to eating out. Currently, he is not tolerating PO. He denies having tick bites. Denies hx of GA or stroke. Lives w/ . ED course. 1L NSS bolus. Zofran. Vitals: Chronic bradycardia, mostly in the 50s. Labs: wbc 10.36. Hb 15.8. K 3.6. Cr 1.96, at baseline. t bili 1.3. hstrop 354.2. Lyme Ab neg. ecnd degree AV block Mobitz 1, new vs previous ecg in 2019. CT abd: Cholelithiasis. No acute findings. Admission Exam Per Admitting Provider General: Grossly A&O. NAD. Cooperative. HEENT: Atraumatic, normocephalic. EOMI. PERRL. No LAD. Pulm: CTAB. -wheezes, -rales, -rhonchi. No respiratory distress. Cardiac: RRR, -mrg. Radial pulses intact and symmetrical. No LE edema. Abdominal: Nontender, nondistended, soft. Msk: Moving all extrem. Neuro: Normal strength and sensation of extremities. Integ: Warm, dry, intact. Principal Diagnosis Gastroenteritis, Constipation Discharge Exam Constitutional WD/WN, vitals as above Eyes PERRL, conjunctivae normal, anicteric sclerae Respiratory normal respiratory effort, lungs clear to auscultation Cardiovascular RRR, no murmur, no edema Gastrointestinal (Abdomen) BS+, non-distended, soft, mildly tender to palpation at epigastric region and LLQ Discharge Data Allergies Allergy/AdvReac Type Severity Reaction Status Date / Time No Known Allergies Allergy Verified 11/11/21 22:48 Consultations 11/11/21 23:31 ED Decision to Admit Stat Ordered Studies 11/11/21 22:06 CT abd pelvis IV con only Urgent IMPRESSION: 1. No acute infectious or inflammatory findings are identified in the abdomen or pelvis. 2. There is a 4.2 x 3.9 cm infrarenal abdominal aortic aneurysm. This is similar to previous. 3. 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 4. Cholelithiasis. 5. Moderate constipation. 6. Cardiomegaly and hiatal hernia. 7. Additional findings as above. Hospital Course (1) Nausea & vomitin86 year old male w/ PMHx of HTN, AAA, lower extremity on Eliquis, DM (a1c 6.7), PVD, bradycardia who presents w/ nausea, vomiting since the day prior. Nausea & Vomiting: -Electrolytes WNL, no diarrhea. -CT A/P w/ cholelithiasis w/o evidence cholecystitis, moderate constipation. -Troponin elevated 354 but stable. -Patient with a few runs of second-degree AV heart block however on repeat EKG not present. -Echo w/o wall motion abnormalities, EF 65-70% -Onset 48 hours past potential food cause. -Most likely viral gastroenteritis vs constipation vs contribution from both. -Encouraged supportive care for patient, reassured should go back to normal within a few days. -Told patient to take MiraLAX twice a day, prescribed Zofran ODT 4 mg as needed for nausea Q8h. Elevated Troponin: -Troponin raised as above however stable. -Most likely secondary to demand ischemia given normal echo. -Let patient know of the results and reassured most likely secondary to demand ischemia. Constipation: -Imaging results and plan as above. (2) Second degree atrioventricular block: (3) Elevated troponin: Total Time Total Time Spent Total Time Spent (In Minutes): <30 Discharge Plan Discharge Items Patient Disposition: Home - Self-Care Reason For Visit: NAUSEA, VOMITING, DIZZINESS, NEW MOBITZ 1 Discharge Diagnosis: Gastroenteritis, Constipation Activity: Per Instructions section Non-emergency contact: Primary Care Provider Call non-emergency contact if: your symptoms worsen, your pain is worsening and your temperature is above 101 Follow-up/Referrals: Wili Treviño MD [Primary Care Provider] - Diet: Regular Addtl Attending Provider Instructions: A discharge summary will be sent to your primary care physician to ensure continuity of care. You came into the hospital for intractable nausea and vomiting ongoing for the past few days. Over the course of your hospital stay you were given medication for nausea and vomiting and bowel rest with good improvement in your symptoms. During your stay we ruled out any cardiac involvement contributing to your nausea and vomiting by getting a ultrasound of your heart. The ultrasound of your heart showed no evidence of wall motion abnormality showing you had good motion of your heart muscle. Given that the cardiac origin was ruled out, the most likely cause of your nausea and vomiting would be a gastroenteritis caused by viral infection. We also obtained a CT scan of your abdomen and pelvis which showed moderate evidence of constipation. This constipation may have contributed to the nausea and vomiting in conjunction with the viral gastroenteritis. As such, we recommend that you take a stool softener to help relieve the constipation. We also given you a nausea medication known as Zofran to take as needed for nausea when it gets very bad. Please be sure to eat foods that are light on the stomach and slowly increase to what you feel comfortable with. Follow-up: * You should be seen by your primary physician within the next week. Medications: Your medication list has been reviewed and reconciled upon discharge to ensure accuracy and continuity of care. An updated list of all your medications is included with your hospital discharge paperwork. Please review this list closely, and make note of any changes. * Please take MiraLAX 2 times a day to help soften your stools. This can be obtained [id number]. * You were prescribed a medication known as Zofran to take in times of extreme nausea. Take your medications as instructed; do not skip a dose of your medicines. Make sure all of your doctors know every medicine you are taking (including [id number] medicines, vitamins, and supplements). let your primary care provider know before taking any new medicines because some of these may interact with your current medications, or may make your symptoms worse. CONTACT YOUR PRIMARY CARE PROVIDER if you experience any of the following: * Fevers or shaking chills * Shortness of breath not relieved by inhalers, fainting * Sudden abdominal distension not relieved by catheterization. * Difficulty following your treatment plan, or difficulty taking medications CALL 911 OR GO TO THE EMERGENCY DEPARTMENT if you experience any of the following: * Sudden, severe abdominal pain or nausea/vomiting * Severe chest pain, or chest pain that radiates (moves) to your jaw or arm * Sudden, severe shortness of breath or difficulty breathing It was was our pleasure taking care of you here at [facility] . Thank you for allowing us to participate in your care. Pending Studies at Discharge: No Stand-Alone Forms: [facility] Vinted, Smoking Cessation Medications and DC Order Prescriptions: New ondansetron 4 mg tablet,disintegrating 4 mg PO Q8H PRN (Reason: nausea and vomiting) 3 Days Qty: 9 RF: 0 Continued metformin 500 mg Tablet 500 mg PO BID RF: 0 Xarelto 20 mg Tablet 20 mg PO HS RF: 0 aspirin [Maya Low Dose Aspirin] 81 mg Tablet,Delayed Release (Dr/Ec) 81 mg PO QAM RF: 0 nifedipine [Procardia XL] 60 mg Tablet Extended Release 24hr 60 mg PO QAM RF: 0 rosuvastatin 40 mg Tablet 40 mg PO HS RF: 0 metoprolol succinate 50 mg tablet extended release 24 hr 25 mg PO DAILY RF: 0 triamterene-hydrochlorothiazid 75-50 mg Tablet 1 tab PO DAILY RF: 0 potassium chloride 20 mEq Tablet Extended Release 20 meq PO BID RF: 0 Discharge Orders: Discharge Order (Routine); Ordered 11/12/21 Ordered By: Tavon Angulo Admission Data Admit Date/Time: 11/11/21 23:55 Attending Provider: Job Tellez Admit Provider: Tutu Mckay Primary Care Provider: Wili Treviño Other Providers: Jim Schafer Other Interventions: Discharge Summary Assessment (RN) Last Done: 11/12/21 17:40 Supervising Physician Co-Signing Physician Notes I personally examined the patient and verified all rodrigues points of history and exam, discussed case, and agree with decision making with Dr Angulo Feeling better. Ate reasonably well. Stomach really does not hurt nearly as much. No further vomiting. Son present. Vitals noted, in general he is awake and alert pleasant no distress. HEENT normocephalic atraumatic mucous membranes moist. Breathing unlabored no accessory muscle use good effort. Abdomen soft very mild epigastric and very mild left lower quadrant tenderness, no guarding rebound rigidity no masses or ganomegaly. Nausea vomitingviral enteritis versus constipation mediateddifficult to distinguish 1 from the other given that he is getting better. Either way appears safe/stable for home. Given the constipation noted on CTbowel regimen with MiraLAX. Outpatient follow-up Elevated troponinvery mild, echo very reassuring. Has known vascular diseasealmost certainly mild demand ischemia due to his nausea vomiting dehydration. Safe/stable for home. Otherwise as above Resident Activity Tracking Resident Involvement: Resident Care Provided Care Provided: Adult Hospital Medicine
--- NOTE | 2021-11-12 18:14 | Billing Data ---
Date of Service November 12, 2021 Coding Level of Care Code 94450 OBS Care - Discharge
--- NOTE | 2021-11-12 20:07 | Billing Data ---
Date of Service November 12, 2021 Coding Level of Care Code INT OBSERVATION CARE 70M LVL 3
[2021-11-12] MEDS ORDERED: ROSUVASTATIN CALCIUM 20 MG TAB PO SCH (21:00)
--- NOTE | 2021-11-12 22:19 | Electrocardiogram Report ---
Test Reason : Blood Pressure : / mmHG Vent. Rate : 052 BPM Atrial Rate : 052 BPM P-R Int : 198 ms QRS Dur : 096 ms QT Int : 500 ms P-R-T Axes : 042 -33 048 degrees QTc Int : 465 ms Sinus bradycardia Left axis deviation Possible Lateral infarct (cited on or before 13-MAR-2019) Abnormal ECG When compared with ECG of 24-MAR-2020 11:16, No significant change was found Confirmed by Lyle Jang ([id number]) on 11/12/2021 10:19:11 PM Referred By: REFERRED SELF Confirmed By:Lyle Jang
--- NOTE | 2021-11-12 22:38 | Electrocardiogram Report ---
Test Reason : Blood Pressure : / mmHG Vent. Rate : 058 BPM Atrial Rate : 071 BPM P-R Int : 000 ms QRS Dur : 102 ms QT Int : 478 ms P-R-T Axes : 000 -28 032 degrees QTc Int : 469 ms Sinus rhythm with 2nd degree A-V block (Mobitz I) Abnormal ECG When compared with ECG of 11-NOV-2021 21:56, Sinus rhythm is now with 2nd degree A-V block (Mobitz I) Confirmed by Lyle Jang ([id number]) on 11/12/2021 10:37:41 PM Referred By: REFERRED SELF Confirmed By:Lyle Jang
--- NOTE | 2021-11-12 22:49 | Electrocardiogram Report ---
Test Reason : Blood Pressure : / mmHG Vent. Rate : 052 BPM Atrial Rate : 052 BPM P-R Int : 212 ms QRS Dur : 098 ms QT Int : 496 ms P-R-T Axes : 067 -07 046 degrees QTc Int : 461 ms Sinus bradycardia with 1st degree A-V block Cannot rule out Lateral infarct , age undetermined Abnormal ECG When compared with ECG of 11-NOV-2021 23:38, Sinus rhythm is no longer with 2nd degree A-V block (Mobitz I) Confirmed by Lyle Jang ([id number]) on 11/12/2021 10:49:01 PM Referred By: REFERRED SELF Confirmed By:Lyle Jang
[2021-11-13] MEDS ORDERED: NIFEdipine EXTENDED REL 30 MG TABCR PO SCH (09:00)
== END 2021-11-12 18:20 | disposition home or self-care (01) ==
LOC: ED 19:41 → 2S 19:41 → SUATTDRO 23:55 → 2S 11-12 00:22